=== PATIENT | female | born 1975 | race Caucasian/White ===

== ENCOUNTER 2025-06-06 12:29 | Inpatient (IN) | payer BC, SELFPAY ==
[2025-06-06 12:31] VITALS: BP 102/83; PULSE 92; RESP 18; TEMP 37.1; O2SAT 98; BMI 52.7
--- NOTE | 2025-06-06 13:08 | RAD_ITS ---
PROCEDURE: KNEE 4 OR MORE VIEWS 06/06/2025 REASON FOR EXAM: PAIN TECHNIQUE: Procedure Code: RADKN Modality: DX Procedure: KNEE 4 OR MORE VIEWS Right knee four views COMPARISON: None FINDINGS: There is moderate to severe tricompartment osteoarthritis with joint space narrowing and marginal osteophytes. No acute fracture or dislocation is identified. There is a small visible joint effusion. Mineralization is normal. There is no visible atherosclerosis. RAD/Knee 4 or More Views IMPRESSION: No acute fracture or dislocation is identified. Reading Location: [facility]
--- NOTE | 2025-06-06 13:14 | EX.ED.DYSGE1 ---
HPI History of Present Illness Chief Complaint: Lower Extremity Injury Narrative Narrative: Chief complaint and HPI: 49-year-old female presents for evaluation of right knee pain. Patient states that she is postop 6 weeks from a total left knee replacement that was performed in [place]. States that she was walking in the house with her walker when her right knee gave out on her. States that she heard crunching of her right knee while falling. She denies hitting her head. No LOC. Denies any headache, neck pain, back pain, abdominal pain, chest pain, shortness of breath. States all of her pain is located in her right knee. She was unable to ambulate after the incident. Review of systems: See HPI Medications: As listed on the chart Allergies: As listed on the chart PFSH: Per chart Vital signs: As listed on the chart. Reviewed. Physical exam: Gen: A&O x3, NAD Head: Normocephalic, atraumatic Eyes: No sclera icterus, conjunctiva clear ENT: Moist mucous membranes, atraumatic Neck: Trachea midline, full range of motion CV: Regular rate Resp: Nonlabored respiration GI: Abd soft, non-distended, non-tender Musc: Full ROM of all the extremities, left knee incision healing well without erythema or infection, right knee tender to palpation over the patella otherwise nontender, patient has large body habitus which makes swelling difficult to obtain although no swelling visualized, no external signs of trauma such as erythema or ecchymosis, DP/PT pulses +2 bilaterally, no knee instability, sensation intact Skin: Warm, dry Psych: Cooperative, appropriate mood and affect [facility] Medical History (Updated 06/06/25 @ 15:47 by Lasha West) Fibromyalgia Depression Lymphoma Cardiomyopathy HTN (hypertension) Home Medications ?Medication ?Instructions ?Recorded ?Last Taken ?Type acetaminophen 500 mg tablet 500 - 1,000 mg PO Q6H PRN PRN pain 06/06/25 Unknown History aspirin 81 mg tablet,delayed 81 mg PO BID 06/06/25 Unknown History release brexpiprazole 3 mg tablet (Rexulti) 3 mg PO DAILY 06/06/25 Unknown History bupropion HCl 300 mg 24 hr tablet, 300 mg PO DAILY 06/06/25 Unknown History extended release gffzbqazyt-orasylurccpzb-tvxcpgnc 1 - 2 tab PO Q4H PRN PRN headache 06/06/25 Unknown History 50 mg-325 mg-40 mg tablet empagliflozin 10 mg tablet 10 mg PO DAILY 06/06/25 Unknown History (Jardiance) furosemide 40 mg tablet 40 mg PO DAILY 06/06/25 Unknown History meloxicam 15 mg tablet 15 mg PO DAILY 06/06/25 Unknown History metoprolol succinate 100 mg 100 mg PO DAILY 06/06/25 Unknown History tablet,extended release 24 hr metoprolol succinate 50 mg 50 mg PO QHS 06/06/25 Unknown History tablet,extended release 24 hr omeprazole 40 mg capsule,delayed 40 mg PO DAILY 06/06/25 Unknown History release oxycodone 5 mg tablet 5 - 10 mg PO Q4H PRN PRN pain 06/06/25 Unknown History pregabalin 150 mg capsule 150 mg PO TID 06/06/25 Unknown History sacubitril 97 mg-valsartan 103 mg 1 tab PO BID 06/06/25 Unknown History tablet spironolactone 25 mg tablet 25 mg PO DAILY 06/06/25 Unknown History sumatriptan succinate 100 mg tablet 100 mg PO DAILY PRN migraine 06/06/25 Unknown History tirzepatide (weight loss) 15 15 mg subcut QWEEK 06/06/25 Unknown History mg/0.5 mL subcutaneous pen injector (Zepbound) trazodone 150 mg tablet 150 mg PO QHS 06/06/25 Unknown History venlafaxine 150 mg 150 mg PO DAILY 06/06/25 Unknown History capsule,extended release 24 hr venlafaxine 75 mg capsule,extended 75 mg PO DAILY 06/06/25 Unknown History release 24 hr Allergy/AdvReac Type Severity Reaction Status Date / Time No Known Allergies Allergy Verified 06/06/25 12:31 Surgical History (Updated 06/06/25 @ 15:47 by Lasha West) History of surgical removal of skin lesion H/O gastric sleeve History of carpal tunnel surgery History of hip surgery H/O right knee surgery Total knee replacement status Social History Smoking Status: Never smoker EXAM Physical Exam Const Vital Signs: 06/06/25 12:31 Temperature 98.7 F Temperature Source Oral Pulse Rate 92 Respiratory Rate 18 Blood Pressure 102/83 H Blood Pressure Mean 89 Pulse Ox 98 Oxygen Delivery Method Room Air MDM MDM MDM Narrative Medical decision making narrative: 49-year-old female presents for evaluation of right knee pain. Patient states that she is postop 6 weeks from a total left knee replacement that was performed in [place]. States that she was walking in the house with her walker when her right knee gave out on her. States that she heard crunching of her right knee while falling. She denies hitting her head. No LOC. See physical exam findings. Patient states she has been taking 10 mg oxycodone every 4-6 hours. States she was due for it about an hour ago. Will give oxycodone. X-ray of the right knee obtained. Differential diagnosis includes but is not limited to fracture, sprain, contusion. X-ray of the knee was personally viewed and interpreted by me, ED physician. No fracture or dislocation. Per radiology moderate to severe tricompartment osteoarthritis. On reevaluation, patient was unable to ambulate with a walker. Will give Toradol IM and reevaluate. Patient was unable to ambulate with Toradol. Patient will warrant admission for PT/OT evaluation and possibly skilled rehab. Hospitalist consulted and patient discussed. Would like basic labs before admitting. CBC and BMP ordered. CBC with mild leukocytosis 11.1. No anemia. Platelets unremarkable. BMP relatively unremarkable. patient updated about results. Patient admitted. Impression: 1. Right knee contusion 2. Inability to ambulate secondary to #1 3. Recent left knee replacement Lab Data Labs: Laboratory Results - last 24 hr 06/06/25 15:30 WBC 11.1 H RBC 4.82 Hgb 14.7 Hct 44.4 MCV 92.1 MCH 30.5 MCHC 33.1 RDW Std Deviation 45.0 H RDW Coeff of Porfirio 13.3 Plt Count 223 MPV 10.4 Immature Gran % (Auto) 0.700 Neut % (Auto) 85.8 H Lymph % (Auto) 9.8 L [place] % (Auto) 3.6 Eos % (Auto) 0.0 Baso % (Auto) 0.1 Absolute Neuts (auto) 9.5 H Absolute Lymphs (auto) 1.09 Nucleated RBC % 0 Sodium 137 Potassium 5.0 Chloride 99 Carbon Dioxide 25.9 Anion Gap 12 BUN 32 H Creatinine 1.19 Estim Creat Clear Calc 106.27 Est GFR (MDRD) Non-Af 56 L BUN/Creatinine Ratio 27.1 H Glucose 138 H Calcium 9.2 Radiography Diagnostic Testing: Clinical Impression(s) from Imaging Studies Knee X-Ray 06/06/25 13:08 IMPRESSION: No acute fracture or dislocation is identified. Reading Location: [facility] Discharge Plan Triage Chief Complaint: Lower Extremity Injury ED Provider: Carlitos Gonzalez Dx/Rx/DC Orders Prescriptions: No Action furosemide 40 mg tablet 40 mg PO DAILY metoprolol succinate 50 mg tablet extended release 24 hr 50 mg PO QHS meloxicam 15 mg tablet 15 mg PO DAILY metoprolol succinate 100 mg tablet extended release 24 hr 100 mg PO DAILY aspirin 81 mg tablet,delayed release (DR/EC) 81 mg PO BID acetaminophen 500 mg tablet 500 - 1,000 mg PO Q6H PRN PRN (Reason: pain) wpbpuhyocb-msycvcfgaaulk-uprp 50-325-40 mg tablet 1 - 2 tab PO Q4H PRN PRN (Reason: headache) bupropion HCl 300 mg tablet extended release 24 hr 300 mg PO DAILY Jardiance 10 mg tablet 10 mg PO DAILY Rexulti 3 mg tablet 3 mg PO DAILY omeprazole 40 mg capsule,delayed release(DR/EC) 40 mg PO DAILY venlafaxine 75 mg capsule,extended release 24hr 75 mg PO DAILY sumatriptan succinate 100 mg tablet 100 mg PO DAILY PRN (Reason: migraine) venlafaxine 150 mg capsule,extended release 24hr 150 mg PO DAILY spironolactone 25 mg tablet 25 mg PO DAILY trazodone 150 mg tablet 150 mg PO QHS oxycodone 5 mg tablet 5 - 10 mg PO Q4H PRN PRN (Reason: pain) pregabalin 150 mg capsule 150 mg PO TID sacubitril-valsartan 97-103 mg tablet 1 tab PO BID Zepbound 15 mg/0.5 mL pen injector 15 mg subcut QWEEK Primary Care Provider: Sophia Noel Referrals: Sophia Noel MD [Primary Care Provider, Internal Medicine] Print Language: Gabonese
[2025-06-06] MEDS: Ketorolac 30 MG/ML Syringe IM (14:23)
--- NOTE | 2025-06-06 15:15 | PCM.HP.STD ---
HPI - General General Date of Admission: 06/06/25 Date of Service: 06/06/25 Chief Complaint: Fall with right knee pain HPI Narrative DIANNE BROWN, is a 49 F who presented to [facility] ED on 06/06/2025 with right knee pain after a fall. Patient lives in [place] and was visiting her mother in [place] over the past few days, has no records in our system. [facility] records reviewed. Medical history significant for class III obesity, ALICIA, lymphoma s/p chemotherapy in 2020 now in remission, chronic HFrEF due to chemotherapy with recovery (last EF 47% in 08/2024) and mood disorder. Patient had a recent left total knee replacement done at [facility] on 04/27. She saw her PCP for a preoperative appointment on 04/10 and it was noted that her heart failure was stable and she was otherwise medically optimized for the procedure. Since her procedure, she continues to use a 4 point walker for ambulation and does have some ongoing left knee pain but otherwise has done fairly well postoperatively. Today she was about to get into her car to leave to go back down to [place] when she fell onto her right side. She noted significant right knee pain after the fall and came to the ED for further evaluation. Right knee x-ray in the ED showed moderate to severe tricompartment osteoarthritis with joint space narrowing and marginal osteophytes, small visible joint effusion noted, otherwise no fractures or dislocation noted. She otherwise was hemodynamically stable and labs were benign. She was given medication for pain control and then ED physician attempted to ambulate her but she had significant difficulty with ambulation even with the 4 point walker. Thus, hospitalist was contacted for admission. I saw the patient at bedside in the ED, mother was present. Patient was sitting back comfortably in bed, conversing normally, in no acute distress. She reported mild right knee pain currently at rest that worsens with weightbearing and ambulation. Notes that the pain medication was mild to moderately helpful for her. She otherwise denies any acute concerns currently. Will be admitted for further management. [facility] Medical History (Updated 06/06/25 @ 17:[address] Cuate Azevedo, DO) Fibromyalgia Depression Lymphoma Cardiomyopathy HTN (hypertension) Home Medications ?Medication ?Instructions ?Recorded ?Last Taken ?Type acetaminophen 500 mg tablet 500 - 1,000 mg PO Q6H PRN PRN pain 06/06/25 Unknown History aspirin 81 mg tablet,delayed 81 mg PO BID 06/06/25 Unknown History release brexpiprazole 3 mg tablet (Rexulti) 3 mg PO DAILY 06/06/25 Unknown History bupropion HCl 300 mg 24 hr tablet, 300 mg PO DAILY 06/06/25 Unknown History extended release ddkalqjemq-evmkczemvyclg-znwmoaiq 1 - 2 tab PO Q4H PRN PRN headache 06/06/25 Unknown History 50 mg-325 mg-40 mg tablet empagliflozin 10 mg tablet 10 mg PO DAILY 06/06/25 Unknown History (Jardiance) furosemide 40 mg tablet 40 mg PO DAILY 06/06/25 Unknown History meloxicam 15 mg tablet 15 mg PO DAILY 06/06/25 Unknown History metoprolol succinate 100 mg 100 mg PO DAILY 06/06/25 Unknown History tablet,extended release 24 hr metoprolol succinate 50 mg 50 mg PO QHS 06/06/25 Unknown History tablet,extended release 24 hr omeprazole 40 mg capsule,delayed 40 mg PO DAILY 06/06/25 Unknown History release oxycodone 5 mg tablet 5 - 10 mg PO Q4H PRN PRN pain 06/06/25 Unknown History pregabalin 150 mg capsule 150 mg PO TID 06/06/25 Unknown History sacubitril 97 mg-valsartan 103 mg 1 tab PO BID 06/06/25 Unknown History tablet spironolactone 25 mg tablet 25 mg PO DAILY 06/06/25 Unknown History sumatriptan succinate 100 mg tablet 100 mg PO DAILY PRN migraine 06/06/25 Unknown History tirzepatide (weight loss) 15 15 mg subcut QWEEK 06/06/25 Unknown History mg/0.5 mL subcutaneous pen injector (Zepbound) trazodone 150 mg tablet 150 mg PO QHS 06/06/25 Unknown History venlafaxine 150 mg 150 mg PO DAILY 06/06/25 Unknown History capsule,extended release 24 hr venlafaxine 75 mg capsule,extended 75 mg PO DAILY 06/06/25 Unknown History release 24 hr Allergy/AdvReac Type Severity Reaction Status Date / Time No Known Allergies Allergy Verified 06/06/25 12:31 Surgical History (Updated 06/06/25 @ 15:47 by Lasha West) History of surgical removal of skin lesion H/O gastric sleeve History of carpal tunnel surgery History of hip surgery H/O right knee surgery Total knee replacement status Social History Smoking Status: Never smoker ROS Constitutional Constitutional: Denies chills, fatigue or fever(s) Cardiovascular Cardiovascular: Denies chest pain Respiratory/Chest Respiratory/Chest: Denies shortness of breath at rest Gastrointestinal Gastrointestinal: Denies abdominal pain Musculoskeletal Musculoskeletal: Reports arthralgias, joint pain and joint stiffness; Denies back pain or myalgias Neurologic Neurologic: Denies dizziness, focal weakness, headache(s), numbness or tingling Vital Signs Vital Signs Vital Signs: 06/06/25 12:31 Temperature 98.7 F Temperature Source Oral Pulse Rate 92 Respiratory Rate 18 Blood Pressure 102/83 H Blood Pressure Mean 89 Pulse Ox 98 Oxygen Delivery Method Room Air Weight Weight: 181.2 kg Body Mass Index (BMI) 52.7 Physical Exam Const alert, oriented x3 and no apparent distress Constitutional Narrative: Middle-age female, class III obesity, sitting back comfortably in bed, conversing normally, in no acute distress. General Appearance: cooperative and comfortable HEENT normocephalic, head/scalp atraumatic, hearing grossly normal bilaterally, nasal mucous membranes and turbinates normal and moist oral mucous membranes Eyes PERRL, EOMs intact bilaterally and conjunctivae normal Neck full ROM Chest inspection of chest normal Resp normal respiratory effort, normal air movement, no use of accessory muscles and clear to auscultation bilaterally Cardio regular rate, regular rhythm, no murmurs and peripheral pulses 2+ throughout GI normal to inspection, nondistended, normoactive bowel sounds, soft to palpation, non-tender and non-distended Back/Spine normal ROM Extremity Extremity Narrative: Right knee with mild tenderness to palpation; however no erythema or swelling noted. Left knee with surgical stitches in place and appear to be healing well. Skin no rashes or lesions noted Neuro moves all extremities and no focal motor deficits Speech: speech normal Psych mental status grossly normal Results Lab / Micro Data 06/06/25 15:30 06/06/25 15:30 Imaging Radiology Impression Knee X-Ray 06/06/25 13:08 IMPRESSION: No acute fracture or dislocation is identified. Reading [facility] Assessment & Plan Assessment/Plan (1) Right knee pain: (2) Inability to ambulate due to right knee: PLAN: Plan Patient is a 49-year-old female who presented to [facility] ED on 06/06/2025 with right knee pain and inability to ambulate after a mechanical fall. 1. Right knee pain with inability to ambulate after mechanical fall ? Admit under observation status to [facility]. PT/OT/case management consulted. Patient has been using 4 point walker for ambulation since left knee replacement about 6 weeks ago as below. Had mechanical fall onto right side on morning of admission with resultant right knee pain. Right knee x-ray showed chronic moderate to severe degenerative changes with small joint effusion, no fractures or dislocation noted. Seems most consistent with knee contusion. Will continue pain control with oxycodone 10 mg every 6 hours as needed here. Continue home pregabalin and Mobic as well. Patient reports having steroid injections into the knee in the past without much improvement. She is planning to have the right knee replaced in the near future as well, has not been scheduled yet. Patient lives in [place] and was up in [place] visiting her mother; she would prefer home with outpatient physical therapy if possible on discharge. Appreciate therapy recommendations. 2. Recent left total knee replacement ? Had left total knee arthroplasty done with orthopedic surgery at [facility] in [place] on 04/27. Has used 4 point walker since then and has had ongoing pain managed on oxycodone at home, but she otherwise notes she has done fairly well postoperatively. Unfortunately was scheduled to see her surgeon there tomorrow. Continue oxycodone for pain control as above. Will continue baby aspirin twice daily for DVT prophylaxis while here as well. Chronic medical conditions: ? Class III obesity with ALICIA: BMI 52 on admit. Complicates hospital course and care. Continue PAP therapy at night. Holding home tirzepatide while inpatient. ? Chronic HFrEF: Follows with cardiology in [place]. Initially diagnosed in 2022 and suspected secondary to chemotherapy for lymphoma as below. EF was 35 to 40% at diagnosis. Most recent EF 47% in 08/2024. Euvolemic on admit, no concern for heart failure exacerbation. Will continue home empagliflozin, Lasix, Toprol, spironolactone and Entresto. ? History of lymphoma s/p chemotherapy: Diagnosed in 2020 and underwent 6 rounds of chemotherapy then. Is now in remission. No inpatient needs, continue outpatient follow-up. ? Mood disorder: Stable. Continue home brexpiprazole, bupropion, venlafaxine and trazodone at night. ? GERD: Continue home PPI. DVT prophylaxis: Baby aspirin twice daily CODE STATUS: Full code, verified Effective disposition: Home with home health care versus SNF, 1 to 2 days Total clinical time spent by myself addressing the patient's medical issues, reviewing all the data, and collaborating with patient's care team: 83 minutes. Charges/Coding Visit Charges Inpatient E&M: 82748 Init Hosp L3
[2025-06-06 15:48] LABS: Hematocrit 44.4 % (37-47); Hemoglobin 14.7 g/dL (12.0-15.0); Immature Granulocytes Count 0.080 X10^3/uL (0.0-0.0); Mean Corp Hgb Conc 33.1 g/dL (32-36); Mean Corpuscular Volume 92.1 fL (81-99); Mean Platelet Vol. 10.4 fl (6.2-12.0); NRBC Flagged by Analyzer 0 % (0-5); Platelet Count 223 K/mm3 (150-450); RBC Distribution Width CV 13.3 % (11.6-14.6); RBC Distribution Width SD 45.0 fl (35.1-43.9); Red Blood Count 4.82 M/mm3 (4.2-5.4); White Blood Count 11.1 K/mm3 (4.4-11.0)
[2025-06-06 16:18] LABS: Anion Gap 12 (5-15); BUN 32 mg/dL (4-19); BUN/Creat Ratio 27.1 RATIO (10-20); Calcium,Total 9.2 mg/dL (7.6-11.0); Carbon Dioxide 25.9 mmol/L (21.0-32.0); Chloride 99 mmol/L (98-108); Estimated Creatinine Clearance 106.27 ml/min (50-250); Glucose 138 mg/dL (70-99); Potassium 5.0 mmol/L (3.3-5.1)
--- NOTE | 2025-06-06 16:24 | CASEMGMT ---
Care Management Face to Face with patient for initial transition planning/care coordination assessment in the ED.? This instructional writer introduced self and role at [facility]. Patient alert and oriented. Patient willing to participate in assessment and is able to answer all questions appropriately.? Care providers, pharmacy, and demographics verified. Admitting Diagnosis: ?Lower extremity injury Other diagnosis history: ?Fibromyalgia, lymphoma, cardiomyopathy, HTN PCP: ?Sadie Specialists: ?David with [facility] in [place] Preferred Pharmacy: [facility] Insurance: ?[place] Prescription Benefit: ?yes Living Will/HPOA: ?Patient stated she had both completed LNOK: ?mom Living Arrangements: ?patient lives in a condo in [place], mom has been staying with her to assist after knee surgery.?? Transportation: Mom has been driving patient DME: ?walker, rails on toilet and shower, cane, blood pressure cuff, pulse ox HHC: ?Has been completing outpatient therapy with [facility] in [place] SNF/Rehab: ?none Community Resources: ?none Behavioral Health History: ?Depression Patient goals: Patients discharge plans uncertain at this time. Patient unable to ambulate due to injury to non surgical knee, states she will need a SNF is she is unable to walk at [place].? Would prefer a SNF in [place] if rehab stay is needed. Disposition Plan: admission to acute; RN CM/SW to follow for discharge planning needs that may arise. Priscila Mcneil, [employer] PREP TEACHER, NETWORK CONSULTANT
[2025-06-06 17:46] VITALS: BP 106/70; PULSE 83; RESP 17; TEMP 36; O2SAT 94
[2025-06-06 17:50] VITALS: BP 106/70
[2025-06-06 18:17] VITALS: BMI 61.0
[2025-06-06 20:35] VITALS: BP 113/77; PULSE 81; RESP 16; TEMP 36.5; O2SAT 97
[2025-06-06] MEDS: SACUBITRIL/VALSARTAN 97-103 MG TABLET 1 EACH PO (22:43)
[2025-06-06 22:49] VITALS: BP 105/77; PULSE 77
[2025-06-06] MEDS: Metoprolol(XL)Succ 50 MG Tablet PO (22:49)
[2025-06-07] VITALS (11 sets, daily range): BP systolic 80–114; BP diastolic 49–73; PULSE 77–92; RESP 16–17; TEMP 35.9–36.9; O2SAT 93–97
[2025-06-07] MEDS: Metoprolol(XL)Succ 100 MG Tablet PO (09:28)
[2025-06-07] MEDS: buPROPion (XL) 300 MG TABLET.XL PO (09:31)
[2025-06-07] MEDS: SACUBITRIL/VALSARTAN 97-103 MG TABLET 1 EACH PO (09:31)
[2025-06-07] MEDS: BREXPIPRAZOLE 3 MG PO (09:33)
--- NOTE | 2025-06-07 09:57 | CASEMGMT ---
Discharge Planning A list of?SNF providers including quality and resource use data and consistent with the patient's preferred geographic region, medical needs, and insurance network was created in [facility] Guide.? This list was provided to the RN THOMAS. Ngoc Ann, Discharge Planning Asst.
--- NOTE | 2025-06-07 10:30 | CASEMGMT ---
Addendum entered by Erica Brunner 06/07/25 12:42: Pt has chosen the following for SNF choices:[facility], [facility], [facility] and [facility] respectively. Requested dc assistant front desk manager send referral. Original Note: Discussed pt therapy eval with therapy, pt is in need of a SNF [place]. NELY GUZMAN into pt room, pt sitting up in chair with mother at bedside. Pt agreeable to discussion with mother present. Provided pt with a list of SNF's created by dc assistant front desk manager. Pt states she has a couple in mind. She is aware that if they are not on the list, NELY GUZMAN can reprint as there were many SNF's in her area. Discussed with pt transport to SNF and that she may need to pay up front for some of the travel. Pt states she will need transport as she does not feel that she can get in a regular car for a family member to transport her. Pt to review list and NELY GUZMAN to check back on choices. Pt denies further needs at this time.
--- NOTE | 2025-06-07 12:59 | CASEMGMT ---
Addendum entered by Ngoc Ann 06/08/25 14:32: [facility] has declined. RN CM updated. Ngoc Ann DC Planning Asst. Original Note: Discharge Planning Referral sent to Judy. Ngoc Ann DC Planning Asst.
[2025-06-07] MEDS: 0.9% Saline Lock 10 ML Syringe IV (14:23)
[2025-06-07] MEDS: 0.9% Normal Saline (1000mL) 1,000 ML 50 ML IV (14:23)
--- NOTE | 2025-06-07 16:23 | PN.HOSP_ITS ---
Reason for Visit Chief Complaint: Fall with right knee pain Subjective Subjective Reports still feeling a lot of pain and has difficulty getting around. Does note earlier she felt a little lightheaded because her blood pressure was low but not feeling that way at time of exam. Otherwise no new or acute complaints Objective Data Objective Data Vital Signs: Vital Signs Temp Pulse Resp BP Pulse Ox O2 Del Method 97.5 F L 92 16 87/49 L 95 Room Air 06/07/25 15:53 06/07/25 15:53 06/07/25 15:53 06/07/25 15:53 06/07/25 15:53 06/07/25 15:53 Oxygen Delivery Method Room Air Weight: 209.7 kg Body Mass Index (BMI) 61.0 Intake & Output: Intake and Output for Last 24 Hours 06/05/25 06/06/25 06/07/25 23:59 23:59 23:59 Intake Total 350 / 350 Output Total 200 / 200 Balance 150 / 150 Lab / Micro Data 06/06/25 15:30 06/06/25 15:30 Physical Exam Narrative General: Alert, oriented, no apparent distress HEENT: Atraumatic, normocephalic Eyes: Anicteric, normal conjunctiva, extraocular movements grossly intact Neck: Supple Respiratory: Clear to auscultation bilaterally, normal respiratory effort Cardiovascular: Regular rate and rhythm GI: Soft, nontender, nondistended Extremities: Nonpitting edema Musculoskeletal: Has pain when moving extremities Neuro: No overt focal neurological deficits Skin: Little bit of erythema under icepack but otherwise no overt rashes appreciated Psych: Cooperative Assessment & Plan Assessment/Plan (1) Inability to ambulate due to right knee: PLAN: Plan # Right knee pain after fall - Right knee x-ray showed moderate to severe tricompartment osteoarthritis with joint space narrowing and marginal osteophytes, small visible joint effusion noted otherwise no fractures or dislocations - Given recent left knee replacement in addition to right knee pain patient had significant difficulty ambulating so was admitted for further management - Schedule Tylenol - Pain control/report of care - PT/OT - Plan is for placement in the [facility] where patient is from and where her orthopedic surgeon is # Recent left knee replacement - Continue aspirin 81 mg twice daily # History of cardiomyopathy - No echo available in our system - Patient is on Jardiance, spironolactone, Entresto, metoprolol, furosemide - Has had problems with soft blood pressure especially in addition to her pain medications - Slightly down titrating Entresto metoprolol, holding parameters for spironolactone and Entresto added as well - Will add daily weights and I's and O's #Depression/anxiety -Continue home medications #GERD -Continue PPI # History of fibromyalgia - Continue home medications - Supportive care #Morbid obesity -BMI documented as 61 kg/m? at time of admission -Complicates treatment, prognosis, outcomes -Recommend weight loss and lifestyle changes #DVT ppx: Patient on aspirin 81 mg twice daily for DVT prophylaxis postoperatively, this has been continued Stella Don MD Charges/Coding Visit Charges Inpatient E&M: 50169 Subs Hosp L2
[2025-06-08] VITALS (9 sets, daily range): BP systolic 92–154; BP diastolic 56–137; PULSE 74–114; RESP 16–18; TEMP 36.1–37; O2SAT 95–98; BMI 61.2
[2025-06-08] MEDS: 0.9% Normal Saline (1000mL) 1,000 ML 100 ML IV (03:47)
[2025-06-08 08:12] LABS: Hematocrit 42.2 % (37-47); Hemoglobin 13.5 g/dL (12.0-15.0); Immature Granulocytes Count 0.190 X10^3/uL (0.0-0.0); Mean Corp Hgb Conc 32.0 g/dL (32-36); Mean Corpuscular Volume 95.0 fL (81-99); Mean Platelet Vol. 10.6 fl (6.2-12.0); NRBC Flagged by Analyzer 0 % (0-5); Platelet Count 203 K/mm3 (150-450); RBC Distribution Width CV 13.4 % (11.6-14.6); RBC Distribution Width SD 47.0 fl (35.1-43.9); Red Blood Count 4.44 M/mm3 (4.2-5.4); White Blood Count 18.8 K/mm3 (4.4-11.0)
[2025-06-08 08:41] LABS: Anion Gap 13 (5-15); BUN 59 mg/dL (4-19); BUN/Creat Ratio 20.2 RATIO (10-20); Calcium,Total 8.9 mg/dL (7.6-11.0); Carbon Dioxide 22.8 mmol/L (21.0-32.0); Chloride 99 mmol/L (98-108); Estimated Creatinine Clearance 47.18 ml/min (50-250); Glucose 143 mg/dL (70-99); Potassium 4.7 mmol/L (3.3-5.1)
--- NOTE | 2025-06-08 09:20 | US_ITS ---
PROCEDURE: KIDNEY AND BLADDER N/A REASON FOR EXAM: KIDNEY FXN MORE THAN DOUBLED OVERNIGHT TECHNIQUE: Procedure Code: USKI Modality: US Procedure: KIDNEY AND BLADDER COMPARISON: None FINDINGS: Kidneys: Right kidney is 12.0 x 5.3 x 4.4 cm, while the left is 12.3 x 7.2 x 6.9 cm. [place]: Absent Cysts or Masses: Absent Bladder: Prevoid bladder volume 717 cc. Ureteral jets are not seen. No wall thickening. US/Kidney and Bladder IMPRESSION: No collecting system dilation. Reading Location: [id number]
--- NOTE | 2025-06-08 09:25 | NURSING ---
primary RN updated on conversation regarding meds, ivf, urine needed- priority w/ Dr. Don
[2025-06-08] MEDS: BREXPIPRAZOLE 3 MG PO (09:52)
[2025-06-08] MEDS: Metoprolol(XL)Succ 50 MG Tablet PO (09:52)
[2025-06-08] MEDS: buPROPion (XL) 300 MG TABLET.XL PO (09:53)
[2025-06-08 10:00] LABS: Procalcitonin 0.19 ng/mL (<=0.10)
--- NOTE | 2025-06-08 10:40 | PCM.PN.HOSP ---
Reason for Visit Chief Complaint: Fall with right knee pain Subjective Subjective Patient evaluated at bedside, reports she felt a little bit dizzy yesterday but not today, said her most recent EF was 40% and that she is following routinely with cardiology every 6 months. She denies any chest pain or shortness of breath, still has pain in her knee, denies any urinary complaints, no significant abdominal pain, still waiting to have a bowel movement Objective Data Objective Data Vital Signs: Vital Signs Temp Pulse Resp BP Pulse Ox O2 Del Method 97.3 F L 114 H 18 132/110 H 98 Room Air 06/08/25 09:40 06/08/25 09:52 06/08/25 09:40 06/08/25 09:52 06/08/25 09:40 06/08/25 09:40 Oxygen Delivery Method Room Air Weight: 209.7 kg Body Mass Index (BMI) 61.2 Intake & Output: Intake and Output for Last 24 Hours 06/06/25 06/07/25 06/08/25 23:59 23:59 23:59 Intake Total 831.67 / 1231.67 1596.67 / 1596.67 Output Total 200 / 300 225 / 225 Balance 631.67 / 931.67 1371.67 / 1371.67 Lab / Micro Data 06/08/25 07:55 06/08/25 07:55 Labs: Laboratory Results - last 24 hr 06/08/25 07:55: WBC 18.8 H, RBC 4.44, Hgb 13.5, Hct 42.2, MCV 95.0, MCH 30.4, MCHC 32.0, RDW Std Deviation 47.0 H, RDW Coeff of Porfirio 13.4, Plt Count 203, MPV 10.6, Immature Gran % (Auto) 1.000 H, Neut % (Auto) 85.7 H, Lymph % (Auto) 5.6 L, [place] % (Auto) 7.1, Eos % (Auto) 0.4, Baso % (Auto) 0.2, Absolute Neuts (auto) 16.1 H, Absolute Lymphs (auto) 1.06, Nucleated RBC % 0, Sodium 135, Potassium 4.7, Chloride 99, Carbon Dioxide 22.8, Anion Gap 13, BUN 59 H, Creatinine 2.94 H, Estim Creat Clear Calc 47.18 L, Est GFR (MDRD) Non-Af 19 L, BUN/Creatinine Ratio 20.2 H, Glucose 143 H, Calcium 8.9, Procalcitonin 0.19 H Radiography Diagnostic Testing: Radiology Impression Renal Ultrasound 06/08/25 09:20 IMPRESSION: No collecting system dilation. Reading Location: [facility] Physical Exam Narrative General: Alert, oriented, no apparent distress HEENT: Atraumatic, normocephalic Eyes: Anicteric, normal conjunctiva, extraocular movements grossly intact Neck: Supple Respiratory: Clear to auscultation bilaterally, normal respiratory effort Cardiovascular: Regular rate and rhythm GI: Soft, nontender, nondistended Extremities: Nonpitting Musculoskeletal: Has pain when moving extremities Neuro: No overt focal neurological deficits Skin: No overt rashes appreciated Psych: Cooperative Assessment & Plan Assessment/Plan (1) Inability to ambulate due to right knee: PLAN: Plan #MARIELLA -06/08: On admission patient with BUN of 32 and creatinine 1.19, patient awaiting placement with no acute complaints aside from the knee pain so labs were not repeated 06/07 however decided to repeat routine labs 06/08 which noted a creatinine of 2.94. Unclear if this could be due to patient's low blood pressure in addition to her home medications and the meloxicam she was on but will hold meloxicam, Entresto, Aldactone, Lasix, Jardiance and down titrate metoprolol, obtain urine lytes and a kidney and bladder ultrasound and repeat BMP this afternoon. Monitoring I's and O's as able and daily weights ordered. Blood pressure is much better today. Will need to carefully monitor volume status given patient's cardiomyopathy though she reports EF is much better than previous most recently 40%. # Leukocytosis -06/08: Unclear etiology, patient with no focal complaints, denies any diarrhea or burning on urination, no shortness of breath. Pro-Dionicio 0.19, recommend interpretation is that a Pro-Dionicio less than 0.29 antibiotic therapy is discouraged as bacterial infection is unlikely. Patient afebrile, will check UA and blood culture but will hold off on empiric antibiotics pending further workup and vitals # Right knee pain after fall - Right knee x-ray showed moderate to severe tricompartment osteoarthritis with joint space narrowing and marginal osteophytes, small visible joint effusion noted otherwise no fractures or dislocations - Given recent left knee replacement in addition to right knee pain patient had significant difficulty ambulating so was admitted for further management - Schedule Tylenol - Pain control/report of care - PT/OT - Plan is for placement in the [facility] where patient is from and where her orthopedic surgeon is -06/08: Referrals have been sent for SNF # Recent left knee replacement - Continue aspirin 81 mg twice daily -06/08: Continue PT/OT # History of cardiomyopathy - No echo available in our system - Patient is on Jardiance, spironolactone, Entresto, metoprolol, furosemide - Has had problems with soft blood pressure especially in addition to her pain medications - Slightly down titrating Entresto metoprolol, holding parameters for spironolactone and Entresto added as well - Will add daily weights and I's and O's -06/08: Have held multiple home medications and down titrated metoprolol, BP is better today after IV fluids and holding medications, per patient most recent EF was 40%. Continue to monitor daily weights and I's and O's Chronic medical problems and/or problems not being actively addressed during today's encounter: #Depression/anxiety -Continue home medications #GERD -Continue PPI # History of fibromyalgia - Continue home medications - Supportive care #Morbid obesity -BMI documented as 61 kg/m? at time of admission -Complicates treatment, prognosis, outcomes -Recommend weight loss and lifestyle changes #DVT ppx: Patient on aspirin 81 mg twice daily for DVT prophylaxis postoperatively, this has been continued Stella Don MD Charges/Coding Visit Charges Inpatient E&M: 61191 Subs Hosp L2
[2025-06-08 11:16] LABS: Color, Urine Yellow (Yellow); Glucose, Dipstick 100 mg/dl (Normal); Ketone-Dipstick 5 mg/dl (Negative); Leukocyte Esterase-Dipstick 25 /ul (Negative); Nitrite-Dipstick Negative (Negative); Occult Blood-Urine Negative /ul (Negative); Protein-Dipstick 30 mg/dl (Negative); Red Blood Cells-Urine 0 SEEN /hpf (0-5); Specific Gravity, Urine 1.020 (1.002-1.030); Urine Bilirubin Dipstick Negative (Negative)
[2025-06-08 11:22] LABS: Mucous, Urine RARE /hpf (<or=2+); Squamous Epithelial Cells - UA 0-5 SEEN /hpf (5-10)
--- NOTE | 2025-06-08 11:32 | NURSING ---
bladder scanned pt after straight cath for urine sample; straight cathed for 1050; the amount was too small to measure on the bladder scanner; will continue to monitor
[2025-06-08 12:02] LABS: Urea Nitrogen, Urine 724 mg/dL (NO RANGE EST.)
[2025-06-08 12:03] LABS: Creatinine, Urine (random) 146.00 mg/dL (28.00-217.00)
--- NOTE | 2025-06-08 14:32 | CASEMGMT ---
Addendum entered by Ngoc Ann 06/11/25 09:09: Follow up calls were made to all 2 snfs. VMs left. RN CM updated. Ngoc Ann DC Planning Asst. Original Note: Discharge Planning Referral sent to [facility], [facility], and [facility]. Ngoc Ann DC Planning Asst.
[2025-06-08 14:48] LABS: Differential Indicated SCAN CRITERIA MET; Hematocrit 40.1 % (37-47); Hemoglobin 12.7 g/dL (12.0-15.0); Immature Granulocytes Count 0.210 X10^3/uL (0.0-0.0); Mean Corp Hgb Conc 31.7 g/dL (32-36); Mean Corpuscular Volume 95.9 fL (81-99); Mean Platelet Vol. 11.0 fl (6.2-12.0); NRBC Flagged by Analyzer 0 % (0-5); POSITIVE DIFFERENTIAL YES; Platelet Count 186 K/mm3 (150-450); RBC Distribution Width CV 13.5 % (11.6-14.6); RBC Distribution Width SD 47.8 fl (35.1-43.9); Red Blood Count 4.18 M/mm3 (4.2-5.4); White Blood Count 22.5 K/mm3 (4.4-11.0)
--- NOTE | 2025-06-08 15:18 | CASEMGMT ---
RN CM into pt room, pt aware that her first choice has declined and that referrals were sent to the remaining facility choices.
[2025-06-08 15:37] LABS: Anion Gap 16 (5-15); BUN 63 mg/dL (4-19); BUN/Creat Ratio 18.0 RATIO (10-20); Calcium,Total 8.6 mg/dL (7.6-11.0); Carbon Dioxide 20.3 mmol/L (21.0-32.0); Chloride 96 mmol/L (98-108); Estimated Creatinine Clearance 39.63 ml/min (50-250); Glucose 116 mg/dL (70-99); Potassium 4.4 mmol/L (3.3-5.1)
--- NOTE | 2025-06-08 16:24 | PCM.HOSP.N ---
Hospitalist Note Patient's home medications, Entresto, spironolactone, Lasix, Jardiance, and meloxicam have been held. UA does not appear overtly infectious, has bacteria but no white cells and Pro-Dionicio 0.19 which is in range that usually antibiotics would be discouraged however given further elevation of white count and worsening renal function will place on antibiotics while waiting urine culture and blood cultures. Given worsening renal function, discussed with Dr. Carpenter with nephrology who will see her in consult. Suspected that due to patient's low blood pressure overnight in addition to the nature of her medications (meloxicam etc) may have led to the worsening kidney function given lack of other identifiable etiology at this time. Lactic 3.3, normal CPK. Patient has been started on IV fluids after discussing with nephrology, continue to monitor I's and O's and volume status to avoid overload, repeat labs in the a.m. most recently heart rate 101 with a blood pressure 154/137, afebrile, respiratory rate 17 and pulse ox 97% on room air, patient vitally stable. Suspect lab work is like behind improvement in blood pressure so would anticipate with stable blood pressure and IV fluids as will begin to improve, further workup and management as case evolves. Appreciate nephrology evaluation and recommendations
--- NOTE | 2025-06-08 16:25 | RAD_ITS ---
PROCEDURE: FEMUR MIN 2 VIEWS 06/08/2025 REASON FOR EXAM: RIGHT LEG PAIN, DIFFICULTY BEARING WEIGHT TECHNIQUE: Procedure Code: RADFEM Modality: DX Procedure: FEMUR MIN 2 VIEWS Laterality: Right COMPARISON: None. FINDINGS: BONES: No acute fracture or focal osseous lesion. JOINTS: No dislocation. Mild hip joint space narrowing. Arthritic changes of the knee. SOFT TISSUES: The soft tissues are unremarkable. RAD/Femur Min 2 Views IMPRESSION: NO ACUTE FRACTURE OR DISLOCATION. Reading Location: [id number]
--- NOTE | 2025-06-08 16:25 | RAD_ITS ---
PROCEDURE: TIBIA FIBULA 2 VIEWS 06/08/2025 REASON FOR EXAM: RIGHT LEG PAIN, DIFFICULTY BEARING WEIGHT TECHNIQUE: Procedure Code: RADTF Modality: DX Procedure: TIBIA FIBULA 2 VIEWS Laterality: Right COMPARISON: None. FINDINGS: BONES: No acute fracture or focal osseous lesion. Small plantar and dorsal calcaneal spurs. JOINTS: No dislocation. The ankle mortise is preserved. Arthritic changes of the knee. SOFT TISSUES: The soft tissues are unremarkable. RAD/Tibia & Fibula 2 Views IMPRESSION: NO ACUTE FRACTURE OR DISLOCATION. Reading Location: [id number]
[2025-06-08 16:27] LABS: AST(SGOT) 23 U/L (<=31); Alanine Aminotransfer ALT/SGPT 27 U/L (<=34); Albumin, Serum 3.1 g/dL (3.5-5.0); Alkaline Phosphatase 119 U/L (35-104); Bilirubin, Direct 0.85 mg/dL (0.00-0.30); CPK Total, Creatine Kinase 144 U/L (24-195); Globulin 3.1 g/dL (2.2-4.2)
[2025-06-08] MEDS: 0.9% Normal Saline (1000mL) 1,000 ML 75 ML IV (16:49)
[2025-06-08] MEDS: 0.9% Saline Lock 10 ML Syringe IV (16:50)
[2025-06-08] MEDS: Piperacil/Tazobactam 4.5 GM in 0.9% Normal Saline (100mL MB+) 100 ML IV (17:09)
--- NOTE | 2025-06-08 18:34 | PCM.CONS.R ---
Assessment & Plan Assessment/Plan (1) MARIELLA (acute kidney injury): PLAN: Cr was 1.1 on admit. increased to 3.5. CK is ok. renal US ok. UA not impressive. really nothing happened over last 2 days except low BP. CHF meds on hold. WBC is increasing, lactate 3.3. ? sepsis. ? source. continue IV fluids for now. HPI Consult Data Date of Consult: 06/08/25 HPI Narrative Reason for Consultation: MARIELLA HPI Narrative: DIANNE BROWN, is a 49 F who presents to the hospital with weakness, fall. renal consulted for MARIELLA. she was admitted with a creatinine of 1.1. Cr worsened over last 2 days. BP has been low. history of cardiomyopathy. on several CHF meds. no contrast. recent left knee surgery. WBC increasing. says she was not making urine. does not feel like she is retaining. [facility] Medical History (Updated 06/08/25 @ 18:[address] Ronald Carpenter MD) Fibromyalgia Depression Lymphoma Cardiomyopathy HTN (hypertension) Home Medications ?Medication ?Instructions ?Recorded ?Last Taken ?Type acetaminophen 500 mg tablet 500 - 1,000 mg PO Q6H PRN PRN pain 06/06/25 Unknown History aspirin 81 mg tablet,delayed 81 mg PO BID 06/06/25 Unknown History release brexpiprazole 3 mg tablet (Rexulti) 3 mg PO DAILY 06/06/25 Unknown History bupropion HCl 300 mg 24 hr tablet, 300 mg PO DAILY 06/06/25 Unknown History extended release jjfryekkfb-frpcmycarlxdf-sqcmchsj 1 - 2 tab PO Q4H PRN PRN headache 06/06/25 Unknown History 50 mg-325 mg-40 mg tablet empagliflozin 10 mg tablet 10 mg PO DAILY 06/06/25 Unknown History (Jardiance) furosemide 40 mg tablet 40 mg PO DAILY 06/06/25 Unknown History meloxicam 15 mg tablet 15 mg PO DAILY 06/06/25 Unknown History metoprolol succinate 100 mg 100 mg PO DAILY 06/06/25 Unknown History tablet,extended release 24 hr metoprolol succinate 50 mg 50 mg PO QHS 06/06/25 Unknown History tablet,extended release 24 hr omeprazole 40 mg capsule,delayed 40 mg PO DAILY 06/06/25 Unknown History release oxycodone 5 mg tablet 5 - 10 mg PO Q4H PRN PRN pain 06/06/25 Unknown History pregabalin 150 mg capsule 150 mg PO TID 06/06/25 Unknown History sacubitril 97 mg-valsartan 103 mg 1 tab PO BID 06/06/25 Unknown History tablet spironolactone 25 mg tablet 25 mg PO DAILY 06/06/25 Unknown History sumatriptan succinate 100 mg tablet 100 mg PO DAILY PRN migraine 06/06/25 Unknown History tirzepatide (weight loss) 15 15 mg subcut QWEEK 06/06/25 Unknown History mg/0.5 mL subcutaneous pen injector (Zepbound) trazodone 150 mg tablet 150 mg PO QHS 06/06/25 Unknown History venlafaxine 150 mg 150 mg PO DAILY 06/06/25 Unknown History capsule,extended release 24 hr venlafaxine 75 mg capsule,extended 75 mg PO DAILY 06/06/25 Unknown History release 24 hr Allergy/AdvReac Type Severity Reaction Status Date / Time No Known Allergies Allergy Verified 06/06/25 12:31 Surgical History (Updated 06/06/25 @ 15:47 by Lasha West) History of surgical removal of skin lesion H/O gastric sleeve History of carpal tunnel surgery History of hip surgery H/O right knee surgery Total knee replacement status Social History Smoking Status: Never smoker ROS ROS Narrative negative except above Physical Exam Narrative Alert awake oriented x 3 no obvious distress no pallor no icterus no JVD s1s2 no murmurs lungs clear abdomen soft no organomegaly Lab / Micro Data 06/08/25 14:38 06/08/25 14:38 Labs: Laboratory Results - last 24 hr 06/08/25 07:55: WBC 18.8 H, RBC 4.44, Hgb 13.5, Hct 42.2, MCV 95.0, MCH 30.4, MCHC 32.0, RDW Std Deviation 47.0 H, RDW Coeff of Porfirio 13.4, Plt Count 203, MPV 10.6, Immature Gran % (Auto) 1.000 H, Neut % (Auto) 85.7 H, Lymph % (Auto) 5.6 L, [place] % (Auto) 7.1, Eos % (Auto) 0.4, Baso % (Auto) 0.2, Absolute Neuts (auto) 16.1 H, Absolute Lymphs (auto) 1.06, Nucleated RBC % 0, Sodium 135, Potassium 4.7, Chloride 99, Carbon Dioxide 22.8, Anion Gap 13, BUN 59 H, Creatinine 2.94 H, Estim Creat Clear Calc 47.18 L, Est GFR (MDRD) Non-Af 19 L, BUN/Creatinine Ratio 20.2 H, Glucose 143 H, Calcium 8.9, Procalcitonin 0.19 H 06/08/25 11:05: Urine Color Yellow, Urine Clarity Sl. Cloudy, Urine pH 5.0, Ur Specific Start 1.020, Urine Protein 30 H, Urine Glucose (UA) 100 H, Urine Ketones 5 H, Urine Occult Blood Negative, Urine Nitrite Negative, Urine Bilirubin Negative, Urine Urobilinogen 1 H, Ur Leukocyte Esterase 25 H, Urine RBC 0 SEEN, Urine WBC 0-5 SEEN, Ur Squamous Epith Cells 0-5 SEEN, Urine Bacteria 3+, Urine Mucus RARE, Ur Random Sodium 29, Urine Creatinine 146.00, Urine Potassium 64.0, Urine Chloride < 20, Urine Urea Nitrogen 724 06/08/25 14:38: WBC 22.5 H, RBC 4.18 L, Hgb 12.7, Hct 40.1, MCV 95.9, MCH 30.4, MCHC 31.7 L, RDW Std Deviation 47.8 H, RDW Coeff of Porfirio 13.5, Plt Count 186, MPV 11.0, Immature Gran % (Auto) 0.900, Neut % (Auto) 84.7 H, Lymph % (Auto) 5.0 L, [place] % (Auto) 8.8, Eos % (Auto) 0.3, Baso % (Auto) 0.3, Absolute Neuts (auto) 19.1 H, Absolute Lymphs (auto) 1.13, Nucleated RBC % 0, Sodium 133, Potassium 4.4, Chloride 96 L, Carbon Dioxide 20.3 L, Anion Gap 16 H, BUN 63 H, Creatinine 3.50 H, Estim Creat Clear Calc 39.63 L, Est GFR (MDRD) Non-Af 15 L, BUN/Creatinine Ratio 18.0, Glucose 116 H, Lactic Acid 3.3 H*, Calcium 8.6, Total Bilirubin 1.43 H, Direct Bilirubin 0.85 H, AST 23, ALT 27, Alkaline Phosphatase 119 H, Total Creatine Kinase 144, Total Protein 6.2, Albumin 3.1 L, Globulin 3.1 Imaging Radiology Impression Renal Ultrasound 06/08/25 09:20 IMPRESSION: No collecting system dilation. Reading Location: [id number] Femur X-Ray 06/08/25 16:25 IMPRESSION: NO ACUTE FRACTURE OR DISLOCATION. Reading Location: [id number] Tibia/Fibula X-Ray 06/08/25 16:25 IMPRESSION: NO ACUTE FRACTURE OR DISLOCATION. Reading Location: [id number]
--- NOTE | 2025-06-08 18:56 | NURSING ---
this nurse in to assist patient back to bed from bsc. when pt up to bsc utilized 3 assist, gait belt and walker. pt moved fairly well and was able to bear weight on her legs moved her legs independently stepping to bsc. Going back to bed despite multiple cueing patient not bearing weight on legs to go back to bed. emotional encouragement given as pt repeatedly states she just can't do it. required x6+ staff to get patient to safely stand encourage to exchange bsc for recliner. patient placed in recline position with legs elevated. call light within reach.
[2025-06-08 20:13] LABS: Reflex Lactate? Y
[2025-06-08] MEDS: Piperacil/Tazobactam 3.375 GM in 0.9% Normal Saline (50mL MB+) 50 ML IV (21:42)
--- NOTE | 2025-06-08 22:01 | PCM.HOSP.N ---
Hospitalist Note Pt straight cath'd for over 1L. Staff noting that she is less willing/able to assist with her own transfers, calling on ancillary staff for transfers of 6-7 team members. Order placed for [place] cath d/t urinary retention.
[2025-06-09] VITALS (10 sets, daily range): BP systolic 94–123; BP diastolic 40–81; PULSE 95–110; RESP 16–18; TEMP 36.8–37.2; O2SAT 95–97; BMI 63.2
[2025-06-09] MEDS: Piperacil/Tazobactam 3.375 GM in 0.9% Normal Saline (50mL MB+) 50 ML IV ×3 (06:39→23:07)
[2025-06-09 07:20] LABS: Hematocrit 36.8 % (37-47); Hemoglobin 12.0 g/dL (12.0-15.0); Immature Granulocytes Count 0.190 X10^3/uL (0.0-0.0); Mean Corp Hgb Conc 32.6 g/dL (32-36); Mean Corpuscular Volume 93.9 fL (81-99); Mean Platelet Vol. 11.1 fl (6.2-12.0); NRBC Flagged by Analyzer 0 % (0-5); Platelet Count 150 K/mm3 (150-450); RBC Distribution Width CV 13.5 % (11.6-14.6); RBC Distribution Width SD 46.7 fl (35.1-43.9); Red Blood Count 3.92 M/mm3 (4.2-5.4); White Blood Count 20.5 K/mm3 (4.4-11.0)
[2025-06-09 07:56] LABS: Anion Gap 16 (5-15); BUN 69 mg/dL (4-19); BUN/Creat Ratio 18.8 RATIO (10-20); Calcium,Total 8.5 mg/dL (7.6-11.0); Carbon Dioxide 17.2 mmol/L (21.0-32.0); Chloride 98 mmol/L (98-108); Estimated Creatinine Clearance 38.80 ml/min (50-250); Glucose 124 mg/dL (70-99); Potassium 4.2 mmol/L (3.3-5.1)
[2025-06-09] MEDS: BREXPIPRAZOLE 3 MG PO (09:35)
[2025-06-09] MEDS: buPROPion (XL) 300 MG TABLET.XL PO (09:36)
--- NOTE | 2025-06-09 13:01 | PCM.PN.HOSP ---
Reason for Visit Chief Complaint: Fall with right knee pain Subjective Subjective Feeling very weak, is feeling little bit better today compared to yesterday, denies any lightheadedness at this time Objective Data Objective Data Vital Signs: Vital Signs Temp Pulse Resp BP Pulse Ox O2 Del Method 98.2 F 108 H 16 100/58 L 96 Room Air 06/09/25 10:00 06/09/25 10:00 06/09/25 10:00 06/09/25 10:00 06/09/25 10:00 06/09/25 10:00 Oxygen Delivery Method Room Air Weight: 216.5 kg Body Mass Index (BMI) 63.2 Intake & Output: Intake and Output for Last 24 Hours 06/07/25 06/08/25 06/09/25 23:59 23:59 23:59 Intake Total 831.67 / 1231.67 2721.67 / 2721.67 255.00 / 255.00 Output Total 200 / 300 1675 / 1675 350 / 350 Balance 631.67 / 931.67 1046.67 / 1046.67 -95.00 / -95.00 Lab / Micro Data 06/09/25 07:06 06/09/25 07:06 Labs: Laboratory Results - last 24 hr 06/08/25 14:38: WBC 22.5 H, RBC 4.18 L, Hgb 12.7, Hct 40.1, MCV 95.9, MCH 30.4, MCHC 31.7 L, RDW Std Deviation 47.8 H, RDW Coeff of Porfirio 13.5, Plt Count 186, MPV 11.0, Immature Gran % (Auto) 0.900, Neut % (Auto) 84.7 H, Lymph % (Auto) 5.0 L, [place] % (Auto) 8.8, Eos % (Auto) 0.3, Baso % (Auto) 0.3, Absolute Neuts (auto) 19.1 H, Absolute Lymphs (auto) 1.13, Nucleated RBC % 0, Sodium 133, Potassium 4.4, Chloride 96 L, Carbon Dioxide 20.3 L, Anion Gap 16 H, BUN 63 H, Creatinine 3.50 H, Estim Creat Clear Calc 39.63 L, Est GFR (MDRD) Non-Af 15 L, BUN/Creatinine Ratio 18.0, Glucose 116 H, Lactic Acid 3.3 H*, Calcium 8.6, Total Bilirubin 1.43 H, Direct Bilirubin 0.85 H, AST 23, ALT 27, Alkaline Phosphatase 119 H, Total Creatine Kinase 144, Total Protein 6.2, Albumin 3.1 L, Globulin 3.1 06/08/25 20:37: Lactic Acid 2.1 H* 06/09/25 07:06: WBC 20.5 H, RBC 3.92 L, Hgb 12.0, Hct 36.8 L, MCV 93.9, MCH 30.6, MCHC 32.6, RDW Std Deviation 46.7 H, RDW Coeff of Porfirio 13.5, Plt Count 150, MPV 11.1, Immature Gran % (Auto) 0.900, Neut % (Auto) 85.8 H, Lymph % (Auto) 5.9 L, [place] % (Auto) 6.7, Eos % (Auto) 0.5, Baso % (Auto) 0.2, Absolute Neuts (auto) 17.6 H, Absolute Lymphs (auto) 1.21, Nucleated RBC % 0, Sodium 130 L, Potassium 4.2, Chloride 98, Carbon Dioxide 17.2 L, Anion Gap 16 H, BUN 69 H, Creatinine 3.65 H, Estim Creat Clear Calc 38.80 L, Est GFR (MDRD) Non-Af 15 L, BUN/Creatinine Ratio 18.8, Glucose 124 H, Calcium 8.5 Micro: Microbiology 06/08/25 11:05 Urine, Catheterized Urine Culture - Preliminary Culture exhibits no growth. Radiography Diagnostic Testing: Radiology Impression Femur X-Ray 06/08/25 16:25 IMPRESSION: NO ACUTE FRACTURE OR DISLOCATION. Reading Location: [facility] Tibia/Fibula X-Ray 06/08/25 16:25 IMPRESSION: NO ACUTE FRACTURE OR DISLOCATION. Reading Location: [facility] Physical Exam Narrative General: Alert, oriented, no apparent distress HEENT: Atraumatic, normocephalic Eyes: Anicteric, normal conjunctiva, extraocular movements grossly intact Neck: Supple Respiratory: Clear to auscultation bilaterally, normal respiratory effort Cardiovascular: Regular rate and rhythm GI: Soft, nontender, nondistended Extremities: Nonpitting Musculoskeletal: Has pain when moving extremities Neuro: No overt focal neurological deficits Skin: No overt rashes appreciated Psych: Cooperative Assessment & Plan Assessment/Plan (1) Inability to ambulate due to right knee: (2) MARIELLA (acute kidney injury): PLAN: Plan #MARIELLA -06/08: On admission patient with BUN of 32 and creatinine 1.19, patient awaiting placement with no acute complaints aside from the knee pain so labs were not repeated 06/07 however decided to repeat routine labs 06/08 which noted a creatinine of 2.94. Unclear if this could be due to patient's low blood pressure in addition to her home medications and the meloxicam she was on but will hold meloxicam, Entresto, Aldactone, Lasix, Jardiance and down titrate metoprolol, obtain urine lytes and a kidney and bladder ultrasound and repeat BMP this afternoon. Monitoring I's and O's as able and daily weights ordered. Blood pressure is much better today. Will need to carefully monitor volume status given patient's cardiomyopathy though she reports EF is much better than previous most recently 40%. -06/09: Creatinine in the afternoon 06/08 increased to 3.5, IV fluids started, home meds continue to be held and nephrology consulted. Is suspected due to patient's low BP likely in addition to her other medicines. Seems to be leveling off now, remains on IV fluids. Appreciate nephrology. Also of note it had not seemed as though patient was retaining however she was bladder scanned overnight and did seem to be retaining so she had Barahona placed with the thousand out, will maintain Barahona at this time # Leukocytosis -06/08: Unclear etiology, patient with no focal complaints, denies any diarrhea or burning on urination, no shortness of breath. Pro-Dionicio 0.19, recommend interpretation is that a Pro-Dionicio less than 0.29 antibiotic therapy is discouraged as bacterial infection is unlikely. Patient afebrile, will check UA and blood culture but will hold off on empiric antibiotics pending further workup and vitals -06/09: Patient noted further increase in white count to 22.5 with increase in ANC so she was started on empiric antibiotics especially given worsening kidney function. Urine culture no growth, still unclear if leukocytosis this is reactive, blood cultures pending, not having focal complaints but today white count slightly decreased as is ANC. 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 osteoarthritis with joint space narrowing and marginal osteophytes, small visible joint effusion noted otherwise no fractures or dislocations - Given recent left knee replacement in addition to right knee pain patient had significant difficulty ambulating so was admitted for further management - Schedule Tylenol - Pain control/report of care - PT/OT - Plan is for placement in the [facility] where patient is from and where her orthopedic surgeon is -06/08: Referrals have been sent for SNF -06/09: Repeat x-rays of lower extremity did not show any acute process # Recent left knee replacement - Continue aspirin 81 mg twice daily -06/08: Continue PT/OT -06/09: Plan is for SNF on discharge, referrals pending # History of cardiomyopathy - No echo available in our system - Patient is on Jardiance, spironolactone, Entresto, metoprolol, furosemide - Has had problems with soft blood pressure especially in addition to her pain medications - Slightly down titrating Entresto metoprolol, holding parameters for spironolactone and Entresto added as well - Will add daily weights and I's and O's -06/08: Have held multiple home medications and down titrated metoprolol, BP is better today after IV fluids and holding medications, per patient most recent EF was 40%. Continue to monitor daily weights and I's and O's -06/09: Patient continued on IV fluids with home meds held. Will slightly decrease the rate, patient now has Barahona catheter, monitor I's and O's, denies any shortness of breath. Continue to monitor for fluid overload Chronic medical problems and/or problems not being actively addressed during today's encounter: #Depression/anxiety -Continue home medications #GERD -Continue PPI # History of fibromyalgia - Supportive care #Morbid obesity -BMI documented as 61 kg/m? at time of admission -Complicates treatment, prognosis, outcomes -Recommend weight loss and lifestyle changes #DVT ppx: Patient on aspirin 81 mg twice daily for DVT prophylaxis postoperatively, this has been continued Stella Don MD Time spent in the patient's overall evaluation,decision-making process, review of diagnostic data, adjustment of management, discussion with other providers, nursing nursing and ancillary staff involved in patient's care documentation, 40 Minutes Charges/Coding Visit Charges Inpatient E&M: 14547 Subs Hosp L2
[2025-06-09] MEDS: 0.9% Normal Saline (1000mL) 1,000 ML 50 ML IV (14:51)
[2025-06-10] VITALS (9 sets, daily range): BP systolic 91–121; BP diastolic 49–90; PULSE 98–115; RESP 16–18; TEMP 36.5–36.9; O2SAT 94–100; BMI 63.2
--- NOTE | 2025-06-10 01:26 | PCM.HOSP.N ---
Hospitalist Note Called as patient has had some ongoing hypotension with her last 2 blood pressures being 94/40 and 94/51. Maps are currently 65 or greater. Will check lactate to assess for significance. Please hold on metoprolol. If lactate is elevated will give a bolus.
[2025-06-10 02:57] LABS: Hematocrit 34.5 % (37-47); Hemoglobin 11.1 g/dL (12.0-15.0); Immature Granulocytes Count 0.170 X10^3/uL (0.0-0.0); Mean Corp Hgb Conc 32.2 g/dL (32-36); Mean Corpuscular Volume 94.0 fL (81-99); Mean Platelet Vol. 11.6 fl (6.2-12.0); NRBC Flagged by Analyzer 0 % (0-5); Platelet Count 164 K/mm3 (150-450); RBC Distribution Width CV 13.5 % (11.6-14.6); RBC Distribution Width SD 46.6 fl (35.1-43.9); Red Blood Count 3.67 M/mm3 (4.2-5.4); White Blood Count 17.8 K/mm3 (4.4-11.0)
[2025-06-10 03:40] LABS: AST(SGOT) 17 U/L (<=31); Alanine Aminotransfer ALT/SGPT 20 U/L (<=34); Albumin, Serum 2.8 g/dL (3.5-5.0); Alkaline Phosphatase 113 U/L (35-104); Anion Gap 15 (5-15); BUN 63 mg/dL (4-19); BUN/Creat Ratio 22.7 RATIO (10-20); Calcium,Total 8.7 mg/dL (7.6-11.0); Carbon Dioxide 16.6 mmol/L (21.0-32.0); Chloride 99 mmol/L (98-108); Estimated Creatinine Clearance 51.50 ml/min (50-250); Globulin 3.3 g/dL (2.2-4.2); Glucose 122 mg/dL (70-99); Potassium 4.1 mmol/L (3.3-5.1)
[2025-06-10] MEDS: Piperacil/Tazobactam 3.375 GM in 0.9% Normal Saline (50mL MB+) 50 ML IV ×3 (05:57→21:15)
[2025-06-10] MEDS: BREXPIPRAZOLE 3 MG PO (10:03)
[2025-06-10] MEDS: buPROPion (XL) 300 MG TABLET.XL PO (10:03)
--- NOTE | 2025-06-10 12:19 | PCM.PN.HOSP ---
Reason for Visit Chief Complaint: Fall with right knee pain Subjective Subjective Reports she is feeling better than she was, denies shortness of breath, reports pain is about the same with no focal tenderness, was up on the side of the bed so reports that hurts a little bit more after that but overall not significantly changed. Urine output improving, improving p.o. intake, had been constipated but has since had bowel movement, does note a little bit of nausea but no vomiting Objective Data Objective Data Vital Signs: Vital Signs Temp Pulse Resp BP Pulse Ox O2 Del Method O2 Flow Rate 97.8 F 110 H 18 91/49 L 95 Nasal Cannula 2 06/10/25 10:18 06/10/25 10:18 06/10/25 10:18 06/10/25 10:18 06/10/25 10:18 06/10/25 10:18 06/10/25 10:18 Oxygen Flow Rate (L/min) 2 Oxygen Delivery Method Nasal Cannula Weight: 216.4 kg Body Mass Index (BMI) 63.2 Intake & Output: Intake and Output for Last 24 Hours 06/08/25 06/09/25 06/10/25 23:59 23:59 23:59 Intake Total 2721.67 / 2721.67 3125.00 / 3625.00 1400 / 1400 Output Total 1675 / 1675 1530 / 2230 2400 / 2400 Balance 1046.67 / 1046.67 1595.00 / 1395.00 -1000 / -1000 Lab / Micro Data 06/10/25 01:48 06/10/25 01:48 Labs: Laboratory Results - last 24 hr 06/10/25 01:48: WBC 17.8 H, RBC 3.67 L, Hgb 11.1 L, Hct 34.5 L, MCV 94.0, MCH 30.2, MCHC 32.2, RDW Std Deviation 46.6 H, RDW Coeff of Porfirio 13.5, Plt Count 164, MPV 11.6, Immature Gran % (Auto) 1.000 H, Neut % (Auto) 83.3 H, Lymph % (Auto) 7.0 L, [place] % (Auto) 7.9, Eos % (Auto) 0.6, Baso % (Auto) 0.2, Absolute Neuts (auto) 14.9 H, Absolute Lymphs (auto) 1.25, Nucleated RBC % 0, Sodium 130 L, Potassium 4.1, Chloride 99, Carbon Dioxide 16.6 L, Anion Gap 15, BUN 63 H, Creatinine 2.75 H, Estim Creat Clear Calc 51.50, Est GFR (MDRD) Non-Af 21 L, BUN/Creatinine Ratio 22.7 H, Glucose 122 H, Lactic Acid < 1.0, Calcium 8.7, Total Bilirubin 0.97, AST 17, ALT 20, Alkaline Phosphatase 113 H, Total Protein 6.1, Albumin 2.8 L, Globulin 3.3, Albumin/Globulin Ratio 0.8 L Micro: Microbiology 06/08/25 10:32 Blood Culture (Wb) - Right Hand Blood Culture - Preliminary No growth in 48 hours. 06/08/25 11:05 Urine, Catheterized Urine Culture - Preliminary Alpha hemolytic organism Physical Exam Narrative General: Alert, oriented, no apparent distress HEENT: Atraumatic, normocephalic Eyes: Anicteric, normal conjunctiva, extraocular movements grossly intact Neck: Supple Respiratory: Diminished to the bases but suspect due to body habitus Cardiovascular: Regular rate and rhythm GI: Soft, nontender, nondistended Extremities: Nonpitting Musculoskeletal: Has pain when moving extremities, not particularly tender on palpation of right knee Neuro: No overt focal neurological deficits Skin: No overt rashes appreciated Psych: Cooperative Assessment & Plan Assessment/Plan (1) Inability to ambulate due to right knee: (2) MARIELLA (acute kidney injury): PLAN: Plan #MARIELLA -06/08: On admission patient with BUN of 32 and creatinine 1.19, patient awaiting placement with no acute complaints aside from the knee pain so labs were not repeated 06/07 however decided to repeat routine labs 06/08 which noted a creatinine of 2.94. Unclear if this could be due to patient's low blood pressure in addition to her home medications and the meloxicam she was on but will hold meloxicam, Entresto, Aldactone, Lasix, Jardiance and down titrate metoprolol, obtain urine lytes and a kidney and bladder ultrasound and repeat BMP this afternoon. Monitoring I's and O's as able and daily weights ordered. Blood pressure is much better today. Will need to carefully monitor volume status given patient's cardiomyopathy though she reports EF is much better than previous most recently 40%. -06/09: Creatinine in the afternoon 06/08 increased to 3.5, IV fluids started, home meds continue to be held and nephrology consulted. Is suspected due to patient's low BP likely in addition to her other medicines. Seems to be leveling off now, remains on IV fluids. Appreciate nephrology. Also of note it had not seemed as though patient was retaining however she was bladder scanned overnight and did seem to be retaining so she had Barahona placed with the thousand out, will maintain Barahona at this time -06/10: Creatinine down to 2.75 with fluids and supportive care and holding home medications, given her history of cardiomyopathy we will hold further fluids as she has had improved p.o. intake and is having improved urine output with Barahona in place. Given creatinine is still above baseline we will hold off on resuming other home medications at this time and continue supportive care. BP quite variable but overall remains on the low side, but may be in part due to her underlying cardiomyopathy but cannot say definitively, continue to hold medications that would negatively impact blood pressure, holding parameters on metoprolol as well. Had a lactic acid overnight due to soft blood pressures that was normal, bilirubin normal this a.m., creatinine downtrending, white blood cell count downtrending, blood culture no growth to date, urine culture growing alphahemolytic organism but only 25-50,000 colonies, patient empirically continued on antibiotics while awaiting final culture. Will order echocardiogram given patient's blood pressure to monitor EF, she reports her most recent EF was 40% but unclear if it is reduced and that may be causing some patient's blood pressure fluctuations # Leukocytosis -06/08: Unclear etiology, patient with no focal complaints, denies any diarrhea or burning on urination, no shortness of breath. Pro-Dionicio 0.19, recommend interpretation is that a Pro-Dionicio less than 0.29 antibiotic therapy is discouraged as bacterial infection is unlikely. Patient afebrile, will check UA and blood culture but will hold off on empiric antibiotics pending further workup and vitals -06/09: Patient noted further increase in white count to 22.5 with increase in ANC so she was started on empiric antibiotics especially given worsening kidney function. Urine culture no growth, still unclear if leukocytosis this is reactive, blood cultures pending, not having focal complaints but today white count slightly decreased as is ANC. Unable to obtain CAT scan due to body habitus but patient now does seem to be stabilizing -06/10: Downtrending, UA growing alphahemolytic organism but 25-50,000 colonies, blood culture no growth to date, has been continued on empiric antibiotics given unclear cause of the leukocytosis, continue to follow cultures. Kidney function is improving, lactic completely normal overnight, total bili normalized. BP has been quite variable but still on the low side, will obtain echocardiogram as above to reassess EF in the event patient has further reduced EF contributing to current picture lastly will also consult infectious disease for evaluation tomorrow given the continued uncertainties with white count still being elevated in addition to unclear significance of urine culture in this context # Right knee pain after fall - Right knee x-ray showed moderate to severe tricompartment osteoarthritis with joint space narrowing and marginal osteophytes, small visible joint effusion noted otherwise no fractures or dislocations - Given recent left knee replacement in addition to right knee pain patient had significant difficulty ambulating so was admitted for further management - Schedule Tylenol - Pain control/report of care - PT/OT - Plan is for placement in the [facility] where patient is from and where her orthopedic surgeon is -06/08: Referrals have been sent for SNF -06/09: Repeat x-rays of lower extremity did not show any acute process -06/10: Continue PT/OT, requires significant assistance for most tasks at this time, plan is for placement, awaiting acceptance # Recent left knee replacement - Continue aspirin 81 mg twice daily -06/08: Continue PT/OT -06/09: Plan is for SNF on discharge, referrals pending -06/10: Referral still pending # History of cardiomyopathy - No echo available in our system - Patient is on Jardiance, spironolactone, Entresto, metoprolol, furosemide - Has had problems with soft blood pressure especially in addition to her pain medications - Slightly down titrating Entresto metoprolol, holding parameters for spironolactone and Entresto added as well - Will add daily weights and I's and O's -06/08: Have held multiple home medications and down titrated metoprolol, BP is better today after IV fluids and holding medications, per patient most recent EF was 40%. Continue to monitor daily weights and I's and O's -06/09: Patient continued on IV fluids with home meds held. Will slightly decrease the rate, patient now has Barahona catheter, monitor I's and O's, denies any shortness of breath. Continue to monitor for fluid overload -06/10: Given urine output is improving and p.o. is improving with improving kidney function will try to hold fluids to avoid overload, echocardiogram as above Chronic medical problems and/or problems not being actively addressed during today's encounter: #Depression/anxiety -Continue home medications #GERD -Continue PPI # History of fibromyalgia - Supportive care #Morbid obesity -BMI documented as 61 kg/m? at time of admission -Complicates treatment, prognosis, outcomes -Recommend weight loss and lifestyle changes #DVT ppx: Patient on aspirin 81 mg twice daily for DVT prophylaxis postoperatively, this has been continued Stella Don MD Time spent in the patient's overall evaluation,decision-making process, review of diagnostic data, adjustment of management, discussion with other providers, nursing nursing and ancillary staff involved in patient's care documentation, 42 Minutes Charges/Coding Visit Charges Inpatient E&M: 13398 Subs Hosp L2
--- NOTE | 2025-06-10 12:23 | ECHOCS_ITS ---
Reason For Study Reason For Study: CARDIOMYOPATHY Procedure This was a 2D Doppler, Color Flow transthoracic echocardiogram. The study was technically difficult. Contrast injection was performed. Exam performed portable in patient room. Left Ventricle Normal size and thickness. Borderline LV systolic function. Estimated LVEF 45 to 50%. At least stage I diastolic dysfunction. Right Ventricle The right ventricle is not well visualized. Atria Normal left atrium. The right atrium is not well visualized. Mitral Valve Mitral valve not well visualized. Tricuspid Valve The tricuspid valve is not well visualized. Aortic Valve Trisinus/trileaflet aortic valve. Pulmonic Valve The pulmonic valve is not well visualized. Great Vessels The aortic root is not well visualized. Pericardium/Pleural No pericardial effusion. Medication Diluted definity 2.5ml given slow IV push to enhance endocardial definition. MMode/2D Measurements & Calculations asc Aorta Diam: 2.8 cm LAV(MOD-bp): 29.9 ml LVAd ap4: 32.3 cm2 LAV(MOD-bp) Indexed: 9.6 ml/m2 LVLd ap4: 8.5 cm LAV(MOD-sp2): 29.5 ml EDV(MOD-sp4): 102.2 ml LAV(MOD-sp4): 25.5 ml EDV(sp4-el): 104.5 ml LVAs ap4: 20.5 cm2 LVLs ap4: 7.5 cm ESV(MOD-sp4): 46.7 ml ESV(sp4-el): 47.9 ml EF(MOD-sp4): 54.3 % EF(sp4-el): 54.1 % LVAd ap2: 28.0 cm2 SV(MOD-sp4): 55.5 ml SV(MOD-sp2): 40.7 ml LVLd ap2: 8.2 cm SI(MOD-sp4): 17.8 ml/m2 SI(MOD-sp2): 13.1 ml/m2 EDV(MOD-sp2): 80.7 ml EDV(sp2-el): 81.4 ml LVAs ap2: 18.0 cm2 LVLs ap2: 6.9 cm ESV(MOD-sp2): 40.0 ml ESV(sp2-el): 39.8 ml EF(MOD-sp2): 50.4 % SV(sp4-el): 56.5 ml LA A4 area: 12.1 cm2 Doppler Measurements & Calculations MV E max guillermo: 87.2 cm/sec Lat Peak E' Guillermo: 16.7 cm/sec Med Peak E' Guillermo: 18.1 cm/sec E/E' lat: 5.2 E/E' med: 4.8 MV P1/2t max guillermo: 88.0 cm/sec PA V2 max: 111.8 cm/sec MV P1/2t: 20.9 msec MV dec slope: 1233 cm/sec2 MVA(P1/2t): 10.5 cm2 ECHO/Echo Complete W/ Contrast Interpretation Summary Technically difficult study with suboptimal images. Borderline LV systolic function. Estimated LVEF 45 to 50%. At least stage I jessenia stolic dysfunction. Ordering Physician: Stella Don Referring Physician: Sophia Noel Performed By: Lucy Randolph RDCS
[2025-06-11 03:53] LABS: Hematocrit 32.7 % (37-47); Hemoglobin 10.7 g/dL (12.0-15.0); Immature Granulocytes Count 0.110 X10^3/uL (0.0-0.0); Mean Corp Hgb Conc 32.7 g/dL (32-36); Mean Corpuscular Volume 94.0 fL (81-99); Mean Platelet Vol. 11.4 fl (6.2-12.0); NRBC Flagged by Analyzer 0 % (0-5); Platelet Count 167 K/mm3 (150-450); RBC Distribution Width CV 13.9 % (11.6-14.6); RBC Distribution Width SD 47.6 fl (35.1-43.9); Red Blood Count 3.48 M/mm3 (4.2-5.4); White Blood Count 12.3 K/mm3 (4.4-11.0)
[2025-06-11 04:00] VITALS: BP 106/59; PULSE 110; RESP 16; TEMP 36.6; O2SAT 95
[2025-06-11 04:27] LABS: Anion Gap 12 (5-15); BUN 44 mg/dL (4-19); BUN/Creat Ratio 26.6 RATIO (10-20); Calcium,Total 8.7 mg/dL (7.6-11.0); Carbon Dioxide 18.3 mmol/L (21.0-32.0); Chloride 105 mmol/L (98-108); Estimated Creatinine Clearance 84.79 ml/min (50-250); Glucose 108 mg/dL (70-99); Potassium 3.8 mmol/L (3.3-5.1)
[2025-06-11 05:39] VITALS: BMI 63.5
[2025-06-11] MEDS: Piperacil/Tazobactam 3.375 GM in 0.9% Normal Saline (50mL MB+) 50 ML IV ×2 (06:20→13:36)
[2025-06-11 07:22] VITALS: O2SAT 95
[2025-06-11] MEDS: Senna/Docusate Sodium 1 Tablet 2 TABLET PO (08:29)
[2025-06-11] MEDS: BREXPIPRAZOLE 3 MG PO (08:30)
[2025-06-11] MEDS: buPROPion (XL) 300 MG TABLET.XL PO (08:31)
[2025-06-11 09:18] VITALS: BP 100/61; PULSE 119; RESP 16; TEMP 36.9; O2SAT 98
--- NOTE | 2025-06-11 09:35 | CASEMGMT ---
Addendum entered by Ngoc Ann 06/11/25 13:54: All three have declined. RN CM updated. Ngoc Ann DC Planning Asst. Original Note: Discharge Planning Call rec'd from admissions @ [facility] and [facility]. She requested that referral be resent. [place] also [place] [facility] Ngoc Ann DC Planning Asst.
--- NOTE | 2025-06-11 09:55 | PCM.PN.HOSP ---
Reason for Visit Chief Complaint: Fall with right knee pain Objective Data Objective Data Vital Signs: Vital Signs Temp Pulse Resp BP Pulse Ox O2 Del Method O2 Flow Rate 98.4 F 119 H 16 100/61 98 Room Air 2 06/11/25 09:18 06/11/25 09:18 06/11/25 09:18 06/11/25 09:18 06/11/25 09:18 06/11/25 09:18 06/11/25 07:22 Oxygen Flow Rate (L/min) 2 Oxygen Delivery Method Room Air Weight: 479 lb 4.559 oz Body Mass Index (BMI) 63.5 Intake & Output: Intake and Output for Last 24 Hours 06/09/25 06/10/25 06/11/25 23:59 23:59 23:59 Intake Total 3125.00 / 3625.00 4000 / 4000 650 / 650 Output Total 1530 / 2230 4400 / 4400 850 / 850 Balance 1595.00 / 1395.00 -400 / -400 -200 / -200 Lab / Micro Data 06/11/25 03:33 06/11/25 03:33 Labs: Laboratory Results - last 24 hr 06/11/25 03:33: WBC 12.3 H, RBC 3.48 L, Hgb 10.7 L, Hct 32.7 L, MCV 94.0, MCH 30.7, MCHC 32.7, RDW Std Deviation 47.6 H, RDW Coeff of Porfirio 13.9, Plt Count 167, MPV 11.4, Immature Gran % (Auto) 0.900, Neut % (Auto) 76.8 H, Lymph % (Auto) 10.1 L, [place] % (Auto) 10.9 H, Eos % (Auto) 1.1, Baso % (Auto) 0.2, Absolute Neuts (auto) 9.5 H, Absolute Lymphs (auto) 1.25, Nucleated RBC % 0, Sodium 135, Potassium 3.8, Chloride 105, Carbon Dioxide 18.3 L, Anion Gap 12, BUN 44 H, Creatinine 1.67 H, Estim Creat Clear Calc 84.79, Est GFR (MDRD) Non-Af 37 L, BUN/Creatinine Ratio 26.6 H, Glucose 108 H, Calcium 8.7 Micro: Microbiology 06/08/25 10:32 Blood Culture (Wb) - Right Hand Blood Culture - Preliminary No growth in 48 hours. 06/08/25 11:05 Urine, Catheterized Urine Culture - Preliminary Alpha hemolytic organism Physical Exam Narrative Seen and examined. Patient is morbidly obese and requires many people for assistance. Admitted after a fall and twisted her good leg, right leg. Recent left TKR. She denies any prosthesis besides left TKR including pacemaker or artificial valve. No fever or acute URI or LUTS. No rash. Physical exam General: Alert, Oriented x3, Cooperative. Morbid obesity BMI 63.2 kg/m? HEENT: Atraumatic, PERRLA, EOMI, Normocephalic. Oral: No Gingival or Mucosal Lesions/ Ulcerations Neck: Supple, No JVD, Negative Carotid Bruits Chest wall/Lungs: Air entry diminished in bilateral lung bases. No crepitation/rhonchi Cardiovascular: Regular rate and rhythm, Normal S1,S2, No M/G/R Abdomen: Bowel Sounds Present, Soft, Non Tender, Non-Distended : No dysuria. No renal angle tenderness. No suprapubic tenderness. Extremities: No edema, Capillary Refill Less than 3 Seconds Skin: No rashes, No breakdown Musculoskeletal: ROM of right knee or hip not done because of pain. Deformity of right knee. Status post left TKR, autumn intact. Surgical incision dry and no erythema. Neurological: Cranial nerves II-XII grossly intact, DTR 2+/4. No acute focal neurological deficit. Psych/Mental Status: Flat affect. Assessment & Plan Assessment/Plan (1) Inability to ambulate due to right knee: (2) MARIELLA (acute kidney injury): PLAN: Plan 1. #MARIELLA 06/11: On admission BUN/creatinine was 32/1.19. It increased to 44/1.67. Patient was seen by oracle business analyst CPK normal. Renal ultrasound no acute abnormality. Patient had low blood pressure and CHF medication on hold. Lactate was elevated therefore ID consult was obtained. No acute focus of infection on detailed history. No fever or dysuria or LUTS. Urine culture shows 25,000?50,000 G adiacnes. Blood culture does not show growth in 48 hours. As per ID, mild strep and urine. UA was growing alphahemolytic organism. Currently on Zosyn narrowed down to IV ceftriaxone. 2. # Leukocytosis 11/10: Leukocytosis improving may be related to trauma and fall. Pro-Dionicio only minimally elevated at 0.19. Lactate as mentioned above. Seems mainly inflammatory 3. 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 Sha Barber, [facility]. Repeat x-rays of lower extremity did not show any acute process 06/11: Continue PT/OT, requires significant assistance for most tasks at this time, plan is for placement, awaiting acceptance Continue aspirin 81 mg twice daily 4. History of cardiomyopathy probably from chemotherapy of Hodgkin's lymphoma. Currently Hodgkin's lymphoma is in remission. Last chemotherapy was in 2020 -06/11: Because of low BP metoprolol was down titrated. Her other medications Entresto, furosemide, Jardiance and spironolactone were held because of MARIELLA. Urine output improving. Given urine output is improving and p.o. is improving with improving kidney function will try to hold fluids to avoid overload, echocardiogram as above 2D echo technically difficult study with suboptimal images. Borderline LV systolic function, estimated EF 45 to 50% at least stage I diastolic dysfunction. Trileaflet aortic valve rest valves not visualized. RV not visualized Interpretation Summary Technically difficult study with suboptimal images. Borderline LV systolic function. Estimated LVEF 45 to 50%. At least stage I diastolic dysfunction. #Depression/anxiety -Continue home medications #GERD -Continue PPI # History of fibromyalgia - Supportive care #Morbid obesity -BMI documented as 61 kg/m? at time of admission -Complicates treatment, prognosis, outcomes -Recommend weight loss and lifestyle changes #DVT ppx: Patient on aspirin 81 mg twice daily for DVT prophylaxis postoperatively, this has been continued Charges/Coding Visit Charges Inpatient E&M: 30695 Subs Hosp L2
[2025-06-11 11:30] VITALS: BP 104/56; PULSE 116; RESP 16; TEMP 36.6; O2SAT 95
--- NOTE | 2025-06-11 14:36 | CASEMGMT ---
NELY GUZMAN into pt room to notify top SNF choices have declined, Pt mom in the room sitting at bedside. Pt agreeable to DC planning while mom is present. NELY GUZMAN asked for her next top choices. Pt asked NELY GUZMAN to come back in a little while.
--- NOTE | 2025-06-11 14:48 | PCM.CONS.GEN ---
Assessment & Plan Assessment/Plan (1) MARIELLA (acute kidney injury): (2) Right knee pain: (3) Leukocytosis: PLAN: May have been related to trauma and the fall. Lactate was elevated as well. No fever, no focal sign of infection. UA neg, mild strep seen on Ucx. Will narrow to ceftriaxone, likely can be discharged soon off of abx. Will follow, thank you HPI Consult Data Date of Consult: 06/11/25 HPI Narrative Reason for Consultation: leukocytosis HPI Narrative: DIANNE BROWN, is a 49 F with recent L knee replacement, presented 06/06 after fall, landing on R knee. Had felt light headed. No issues with L knee incision. No fever, no cough or SOB, no dysuria or urine changes. Mild nausea. Currently on zosyn. Full ROS performed and neg except as noted above. [facility] Medical History Fibromyalgia Depression Lymphoma Cardiomyopathy HTN (hypertension) Home Medications ?Medication ?Instructions ?Recorded ?Last Taken ?Type acetaminophen 500 mg tablet 500 - 1,000 mg PO Q6H PRN PRN pain 06/06/25 Unknown History aspirin 81 mg tablet,delayed 81 mg PO BID 06/06/25 Unknown History release brexpiprazole 3 mg tablet (Rexulti) 3 mg PO DAILY 06/06/25 Unknown History bupropion HCl 300 mg 24 hr tablet, 300 mg PO DAILY 06/06/25 Unknown History extended release lxwgowwzzb-gzpvxldaghcki-rrqzloet 1 - 2 tab PO Q4H PRN PRN headache 06/06/25 Unknown History 50 mg-325 mg-40 mg tablet empagliflozin 10 mg tablet 10 mg PO DAILY 06/06/25 Unknown History (Jardiance) furosemide 40 mg tablet 40 mg PO DAILY 06/06/25 Unknown History meloxicam 15 mg tablet 15 mg PO DAILY 06/06/25 Unknown History metoprolol succinate 100 mg 100 mg PO DAILY 06/06/25 Unknown History tablet,extended release 24 hr metoprolol succinate 50 mg 50 mg PO QHS 06/06/25 Unknown History tablet,extended release 24 hr omeprazole 40 mg capsule,delayed 40 mg PO DAILY 06/06/25 Unknown History release oxycodone 5 mg tablet 5 - 10 mg PO Q4H PRN PRN pain 06/06/25 Unknown History pregabalin 150 mg capsule 150 mg PO TID 06/06/25 Unknown History sacubitril 97 mg-valsartan 103 mg 1 tab PO BID 06/06/25 Unknown History tablet spironolactone 25 mg tablet 25 mg PO DAILY 06/06/25 Unknown History sumatriptan succinate 100 mg tablet 100 mg PO DAILY PRN migraine 06/06/25 Unknown History tirzepatide (weight loss) 15 15 mg subcut QWEEK 06/06/25 Unknown History mg/0.5 mL subcutaneous pen injector (Zepbound) trazodone 150 mg tablet 150 mg PO QHS 06/06/25 Unknown History venlafaxine 150 mg 150 mg PO DAILY 06/06/25 Unknown History capsule,extended release 24 hr venlafaxine 75 mg capsule,extended 75 mg PO DAILY 06/06/25 Unknown History release 24 hr Allergy/AdvReac Type Severity Reaction Status Date / Time No Known Allergies Allergy Verified 06/06/25 12:31 Surgical History (Updated 06/06/25 @ 15:47 by Lasha West) History of surgical removal of skin lesion H/O gastric sleeve History of carpal tunnel surgery History of hip surgery H/O right knee surgery Total knee replacement status Social History Smoking Status: Never smoker Physical Exam Const alert, oriented x3 and no apparent distress General Appearance: cooperative HEENT normocephalic and head/scalp atraumatic Eyes PERRL and EOMs intact bilaterally Neck supple and No nodes Resp normal air movement and clear to auscultation bilaterally Cardio regular rate and regular rhythm GI soft to palpation, non-tender and non-distended Extremity General Extremity: edema Skin no rashes or lesions noted Skin Narrative: L knee incision healing well Neuro CN's II-XII intact bilaterally Lab / Micro Data Attestation: I reviewed the patient's lab results. 06/11/25 03:33 06/11/25 03:33 Labs: Laboratory Results - last 24 hr 06/11/25 03:33: WBC 12.3 H, RBC 3.48 L, Hgb 10.7 L, Hct 32.7 L, MCV 94.0, MCH 30.7, MCHC 32.7, RDW Std Deviation 47.6 H, RDW Coeff of Porfirio 13.9, Plt Count 167, MPV 11.4, Immature Gran % (Auto) 0.900, Neut % (Auto) 76.8 H, Lymph % (Auto) 10.1 L, [place] % (Auto) 10.9 H, Eos % (Auto) 1.1, Baso % (Auto) 0.2, Absolute Neuts (auto) 9.5 H, Absolute Lymphs (auto) 1.25, Nucleated RBC % 0, Sodium 135, Potassium 3.8, Chloride 105, Carbon Dioxide 18.3 L, Anion Gap 12, BUN 44 H, Creatinine 1.67 H, Estim Creat Clear Calc 84.79, Est GFR (MDRD) Non-Af 37 L, BUN/Creatinine Ratio 26.6 H, Glucose 108 H, Calcium 8.7 Micro: Microbiology 06/08/25 11:05 Urine, Catheterized Urine Culture - Final Granulicatella adiacens 06/08/25 10:32 Blood Culture (Wb) - Right Hand Blood Culture - Preliminary No growth in 48 hours. Imaging Radiology Impression Echocardiogram 06/10/25 12:23 Interpretation Summary Technically difficult study with suboptimal images. Borderline LV systolic function. Estimated LVEF 45 to 50%. At least stage I diastolic dysfunction. Ordering Physician: Stella Don Referring Physician: Sophia Noel Performed By: Lucy Randolph RDCS
--- NOTE | 2025-06-11 15:00 | CASEMGMT ---
NELY GUZMAN followed up with pt, [facility]. NELY GUZMAN notified DC planning technician, she will send referrals via [facility].
[2025-06-11] MEDS: Ceftriaxone 2 GM in 0.9% Normal Saline (50mL MB+) 50 ML IV (15:06)
--- NOTE | 2025-06-11 15:29 | CASEMGMT ---
Addendum entered by Ngoc Ann 06/11/25 15:58: [facility] has accepted. The others have declined. Pt would like [facility] proceed [facility] asked to submit for precert. NELY CM updated. Ngoc Ann DC Planning Asst. Original Note: Discharge Planning Referral sent to [facility], [facility], [facility], and [facility]. Ngoc Ann DC Planning Asst.
[2025-06-11 15:44] VITALS: BP 113/71; PULSE 109; RESP 16; TEMP 36.5; O2SAT 94
[2025-06-11 20:30] VITALS: BP 119/68; PULSE 117; RESP 16; TEMP 36.6; O2SAT 98
[2025-06-12 02:00] VITALS: BP 110/61; PULSE 111; RESP 16; TEMP 36.6; O2SAT 95
[2025-06-12 04:32] VITALS: BMI 64.9
[2025-06-12 06:45] LABS: Hematocrit 34.2 % (37-47); Hemoglobin 10.8 g/dL (12.0-15.0); Immature Granulocytes Count 0.130 X10^3/uL (0.0-0.0); Mean Corp Hgb Conc 31.6 g/dL (32-36); Mean Corpuscular Volume 95.0 fL (81-99); Mean Platelet Vol. 10.6 fl (6.2-12.0); NRBC Flagged by Analyzer 0 % (0-5); Platelet Count 201 K/mm3 (150-450); RBC Distribution Width CV 14.0 % (11.6-14.6); RBC Distribution Width SD 49.6 fl (35.1-43.9); Red Blood Count 3.60 M/mm3 (4.2-5.4); White Blood Count 8.9 K/mm3 (4.4-11.0)
[2025-06-12 07:20] LABS: Anion Gap 11 (5-15); BUN 23 mg/dL (4-19); BUN/Creat Ratio 24.4 RATIO (10-20); Calcium,Total 8.5 mg/dL (7.6-11.0); Carbon Dioxide 19.7 mmol/L (21.0-32.0); Chloride 107 mmol/L (98-108); Estimated Creatinine Clearance 154.88 ml/min (50-250); Glucose 90 mg/dL (70-99); Potassium 3.8 mmol/L (3.3-5.1)
[2025-06-12 07:54] VITALS: O2SAT 93
[2025-06-12 08:30] VITALS: BP 113/74; PULSE 101; RESP 18; TEMP 36.3; O2SAT 98
[2025-06-12] MEDS: Ceftriaxone 2 GM in 0.9% Normal Saline (50mL MB+) 50 ML IV (09:29)
[2025-06-12] MEDS: BREXPIPRAZOLE 3 MG PO (09:32)
[2025-06-12] MEDS: buPROPion (XL) 300 MG TABLET.XL PO (09:32)
--- NOTE | 2025-06-12 10:00 | PCM.PN.ID ---
Physical Exam Narrative Feeling better, no fever, no abd pain Const alert and no apparent distress General Appearance: cooperative Resp normal air movement and clear to auscultation bilaterally Cardio regular rate and regular rhythm GI soft to palpation, non-tender and non-distended Skin no rashes or lesions noted ID ID: Route of nutrition/ use of supplements: [] Nutritional Intake: [] IV Site: [] [place] Catheter: [] Assessment & Plan Assessment/Plan (1) MARIELLA (acute kidney injury): (2) Right knee pain: (3) Leukocytosis: PLAN: May have been related to trauma and the fall. Lactate was elevated as well. No fever, no focal sign of infection. UA neg, mild strep seen on Ucx. Will stop abx today. Will follow
[2025-06-12 14:18] VITALS: BP 103/71; PULSE 99; RESP 16; TEMP 36.8; O2SAT 99
--- NOTE | 2025-06-12 15:19 | CASEMGMT ---
[facility] rec'd auth to admit. RN CM updated. Ngoc Ann DC Planning Asst.
--- NOTE | 2025-06-12 15:32 | PN.HOSP_ITS ---
Reason for Visit Chief Complaint: Fall with right knee pain Objective Data Objective Data Vital Signs: Vital Signs Temp Pulse Resp BP Pulse Ox O2 Del Method O2 Flow Rate 98.2 F 99 16 103/71 99 Room Air 2 06/12/25 14:18 06/12/25 14:18 06/12/25 14:18 06/12/25 14:18 06/12/25 14:18 06/12/25 14:19 06/11/25 07:22 Oxygen Flow Rate (L/min) 2 Oxygen Delivery Method Room Air Weight: 489 lb 10.347 oz Body Mass Index (BMI) 64.9 Intake & Output: Intake and Output for Last 24 Hours 06/10/25 06/11/25 06/12/25 23:59 23:59 23:59 Intake Total 4000 / 4000 1518.96 / 1518.96 550 / 550 Output Total 4400 / 4400 1850 / 1850 1150 / 1150 Balance -400 / -400 -331.04 / -331.04 -600 / -600 Lab / Micro Data 06/12/25 06:05 06/12/25 06:05 Labs: Laboratory Results - last 24 hr 06/12/25 06:05: WBC 8.9, RBC 3.60 L, Hgb 10.8 L, Hct 34.2 L, MCV 95.0, MCH 30.0, MCHC 31.6 L, RDW Std Deviation 49.6 H, RDW Coeff of Porfirio 14.0, Plt Count 201, MPV 10.6, Immature Gran % (Auto) 1.500 H, Neut % (Auto) 67.6, Lymph % (Auto) 16.5 L, [place] % (Auto) 12.1 H, Eos % (Auto) 1.9, Baso % (Auto) 0.4, Absolute Neuts (auto) 6.0, Absolute Lymphs (auto) 1.47, Nucleated RBC % 0, Sodium 138, Potassium 3.8, Chloride 107, Carbon Dioxide 19.7 L, Anion Gap 11, BUN 23 H, Creatinine 0.93, Estim Creat Clear Calc 154.88, Est GFR (MDRD) Non-Af 76, BUN/Creatinine Ratio 24.4 H, Glucose 90, Calcium 8.5 Micro: Microbiology 06/08/25 11:05 Urine, Catheterized Urine Culture - Final Granulicatella adiacens 06/08/25 10:32 Blood Culture (Wb) - Right Hand Blood Culture - Preliminary No growth in 48 hours. Physical Exam Narrative Seen and examined. No acute issues. Infection was ruled out. Antibiotic was discontinued yesterday. Patient is morbidly obese and requires many people for assistance. Admitted after a fall and twisted her good leg, right leg. Recent left TKR. She denies any prosthesis besides left TKR including pacemaker or artificial valve. No fever or acute URI or LUTS. No rash. Physical exam General: Alert, Oriented x3, Cooperative. Morbid obesity BMI 63.2 kg/m? HEENT: Atraumatic, PERRLA, EOMI, Normocephalic. Oral: No Gingival or Mucosal Lesions/ Ulcerations Neck: Supple, No JVD, Negative Carotid Bruits Chest wall/Lungs: Air entry diminished in bilateral lung bases. No crepitation/rhonchi Cardiovascular: Regular rate and rhythm, Normal S1,S2, No M/G/R Abdomen: Bowel Sounds Present, Soft, Non Tender, Non-Distended : No dysuria. No renal angle tenderness. No suprapubic tenderness. Extremities: No edema, Capillary Refill Less than 3 Seconds Skin: No rashes, No breakdown Musculoskeletal: ROM of right knee or hip not done because of pain. ROM severely limited with chronic deformity of right knee. Status post left TKR, autumn intact. Surgical incision dry and no erythema. Neurological: Cranial nerves II-XII grossly intact, DTR 2+/4. No acute focal neurological deficit. Psych/Mental Status: Flat affect. Assessment & Plan Assessment/Plan (1) MARIELLA (acute kidney injury): (2) Right knee pain: (3) Leukocytosis: PLAN: Plan 1. #MARIELLA 06/11: On admission BUN/creatinine was 32/1.19. It increased to 44/1.67. Patient was seen by pump service supervisor CPK normal. Renal ultrasound no acute abnormality. Patient had low blood pressure and CHF medication on hold. Lactate was elevated therefore ID consult was obtained. No acute focus of infection on detailed history. No fever or dysuria or LUTS. Urine culture shows 25,000?50,000 G adiacnes. Blood culture does not show growth in 48 hours. As per ID, mild strep and urine. UA was growing alphahemolytic organism. Currently on Zosyn narrowed down to IV ceftriaxone. 06/12: BUN/creatinine 23/0.93. MARIELLA resolved. Continue holding furosemide, spironolactone and Entresto. 2. # Leukocytosis 06/11: Leukocytosis improving may be related to trauma and fall. Pro-Dionicio only minimally elevated at 0.19. Lactate as mentioned above. Seems mainly inflammatory 06/12: Leukocytosis resolved. Infection ruled out. Patient was evaluated by ID and antibiotic was discontinued yesterday 3. # Right knee pain after fall - Right knee x-ray showed moderate to severe tricompartment osteoarthritis with joint space narrowing and marginal osteophytes, small visible joint effusion noted otherwise no fractures or dislocations - Given recent left knee replacement in addition to right knee pain patient had significant difficulty ambulating so was admitted for further management - Schedule Tylenol - Pain control/report of care - PT/OT - Plan is for placement in the [place] area where patient is from and where her orthopedic surgeon, orthopedic surgeon, Dr. Sha Barber, [facility]. Repeat x-rays of lower extremity did not show any acute process 06/11: Continue PT/OT, requires significant assistance for most tasks at this time, plan is for placement, awaiting acceptance Continue aspirin 81 mg twice daily 06/12: Pre-CERT arrived late. Patient is going to be discharged to his senior care near [place]. Discharge early tomorrow. 4. History of cardiomyopathy probably from chemotherapy of Hodgkin's lymphoma. Currently Hodgkin's lymphoma is in remission. Last chemotherapy was in 2020 -06/11: Because of low BP metoprolol was down titrated. Her other medications Entresto, furosemide, Jardiance and spironolactone were held because of MARIELLA. Urine output improving. Given urine output is improving and p.o. is improving with improving kidney function will try to hold fluids to avoid overload, echocardiogram as above 2D echo technically difficult study with suboptimal images. Borderline LV systolic function, estimated EF 45 to 50% at least stage I diastolic dysfunction. Trileaflet aortic valve rest valves not visualized. RV not visualized Interpretation Summary Technically difficult study with suboptimal images. Borderline LV systolic function. Estimated LVEF 45 to 50%. At least stage I diastolic dysfunction. #Depression/anxiety -Continue home medications #GERD -Continue PPI # History of fibromyalgia - Supportive care #Morbid obesity -BMI documented as 61 kg/m? at time of admission -Complicates treatment, prognosis, outcomes -Recommend weight loss and lifestyle changes #DVT ppx: Patient on aspirin 81 mg twice daily for DVT prophylaxis postoperatively, this has been continued Charges/Coding Visit Charges Inpatient E&M: 06308 Subs Hosp L2
--- NOTE | 2025-06-12 15:51 | CASEMGMT ---
Discharge Planning Physicians will transport pt by cot tomorrow at 10a. Per Physician, there will be no [id number] cost for pt. [facility] and that orders will be sent in the morning. NELY GUZMAN updated. Ngoc Ann DC Planning Asst.
--- NOTE | 2025-06-12 16:15 | CASEMGMT ---
Addendum entered by Navid Caraballo 06/12/25 17:02: Pt states she has notified her mom about discharge to SNF tomorrow. Original Note: NELY GUZMAN note: Dr Chaudhary made aware prior auth for SNF[facility] obtained. He states will discharge pt tomorrow morning. chacho Grossman assistant chief of police, made aware. Transport arranged for 10 AM tomorrow morning per Ngoc. Dr Chaudhary made aware. Pt made aware of all of the above & voices appreciation. Rachid BOSWELL CM
[2025-06-12 22:25] VITALS: BP 135/76; PULSE 106; RESP 18; TEMP 36.5; O2SAT 98
[2025-06-12] MEDS: 0.9% Saline Lock 10 ML Syringe IV (22:38)
[2025-06-13 04:25] VITALS: BMI 64.6
[2025-06-13 04:40] VITALS: BP 140/81; PULSE 102; RESP 16; TEMP 36.7; O2SAT 98
[2025-06-13 07:28] LABS: Hematocrit 35.1 % (37-47); Hemoglobin 11.3 g/dL (12.0-15.0); Immature Granulocytes Count 0.180 X10^3/uL (0.0-0.0); Mean Corp Hgb Conc 32.2 g/dL (32-36); Mean Corpuscular Volume 94.6 fL (81-99); Mean Platelet Vol. 10.5 fl (6.2-12.0); NRBC Flagged by Analyzer 0 % (0-5); Platelet Count 203 K/mm3 (150-450); RBC Distribution Width CV 13.8 % (11.6-14.6); RBC Distribution Width SD 48.3 fl (35.1-43.9); Red Blood Count 3.71 M/mm3 (4.2-5.4); White Blood Count 7.7 K/mm3 (4.4-11.0)
[2025-06-13 07:58] VITALS: O2SAT 96
[2025-06-13 08:00] LABS: Anion Gap 12 (5-15); BUN 18 mg/dL (4-19); BUN/Creat Ratio 21.5 RATIO (10-20); Calcium,Total 8.9 mg/dL (7.6-11.0); Carbon Dioxide 20.6 mmol/L (21.0-32.0); Chloride 105 mmol/L (98-108); Estimated Creatinine Clearance 171.07 ml/min (50-250); Glucose 107 mg/dL (70-99); Potassium 4.1 mmol/L (3.3-5.1)
[2025-06-13] MEDS: BREXPIPRAZOLE 3 MG PO (08:04)
[2025-06-13] MEDS: buPROPion (XL) 300 MG TABLET.XL PO (08:04)
--- NOTE | 2025-06-13 08:07 | TREXTCAR_ITS ---
Diet Diet Order/Speech Therapy: INPATIENT Hospital Diet / Speech Therapy Order(s) 06/06/25 18:17 Diet: Cardiac - Heart Healthy Food consistency:: Regular Liquid Consistency:: Regular/Thin Routine Orders/Code Status Suppository Type: Dulcolax 10mg Suppository Frequency: Daily PRN Routine Lab Work: BMP (BMP in 2 days) DC O2, CPAP, BIPAP needs Home O2 Discharge instructions: No Wound(s) Left Knee: Wound Type: Surgical Incision right abd fold: Wound Type: open to air Therapies Extremity Affected:: Bilateral Lower Physical Therapy: Eval and Treat Occupational Therapy: Eval and Treat Speech Therapy: Eval and Treat Problem/Diagnosis (1) MARIELLA (acute kidney injury): Status: Acute Code(s): N17.9 - Acute kidney failure, unspecified (2) Right knee pain: Status: Acute Code(s): M25.561 - Pain in right knee (3) Leukocytosis: Status: Acute Code(s): D72.829 - Elevated white blood cell count, unspecified Plan 1. #MARIELLA 06/11: On admission BUN/creatinine was 32/1.19. It increased to 44/1.67. Patient was seen by food preparation worker CPK normal. Renal ultrasound no acute abnormality. Patient had low blood pressure and CHF medication on hold. Lactate was elevated therefore ID consult was obtained. No acute focus of infection on detailed history. No fever or dysuria or LUTS. Urine culture shows 25,000?50,000 G adiacnes. Blood culture does not show growth in 48 hours. As per ID, mild strep and urine. UA was growing alphahemolytic organism. Currently on Zosyn narrowed down to IV ceftriaxone. 2. # Leukocytosis 06/11: Leukocytosis improving may be related to trauma and fall. Pro-Dionicio only minimally elevated at 0.19. Lactate as mentioned above. Seems mainly inflammatory 3. # Right knee pain after fall - Right knee x-ray showed moderate to severe tricompartment osteoarthritis with joint space narrowing and marginal osteophytes, small visible joint effusion noted otherwise no fractures or dislocations - Given recent left knee replacement in addition to right knee pain patient had significant difficulty ambulating so was admitted for further management - Schedule Tylenol - Pain control/report of care - PT/OT - Plan is for placement in the [facility] where patient is from and where her orthopedic surgeon, orthopedic surgeon, Dr. Sha Barber, [facility]. Repeat x-rays of lower extremity did not show any acute process 06/11: Continue PT/OT, requires significant assistance for most tasks at this time, plan is for placement, awaiting acceptance Continue aspirin 81 mg twice daily 4. History of cardiomyopathy probably from chemotherapy of Hodgkin's lymphoma. Currently Hodgkin's lymphoma is in remission. Last chemotherapy was in 2020 -06/11: Because of low BP metoprolol was down titrated. Her other medications Entresto, furosemide, Jardiance and spironolactone were held because of MARIELLA. Urine output improving. Given urine output is improving and p.o. is improving with improving kidney function will try to hold fluids to avoid overload, echocardiogram as above 2D echo technically difficult study with suboptimal images. Borderline LV systolic function, estimated EF 45 to 50% at least stage I diastolic dysfunction. Trileaflet aortic valve rest valves not visualized. RV not visualized Interpretation Summary Technically difficult study with suboptimal images. Borderline LV systolic function. Estimated LVEF 45 to 50%. At least stage I diastolic dysfunction. #Depression/anxiety -Continue home medications #GERD -Continue PPI # History of fibromyalgia - Supportive care #Morbid obesity -BMI documented as 61 kg/m? at time of admission -Complicates treatment, prognosis, outcomes -Recommend weight loss and lifestyle changes #DVT ppx: Patient on aspirin 81 mg twice daily for DVT prophylaxis postoperatively, this has been continued Allergies/Procedures Done in Hospital Allergies No Known Allergies Allergy (Verified 06/06/25 12:31) Type of Care/Length of Stay Estimated LOS: Convalescent Care Less Than 30 days Type of Care Needed: Skilled Rehab Potential: Good Prognosis: Good Additional Orders/Day of Discharge Day of Discharge: 06/13/25 Dietary and Speech Recommendations Dietitian Recommendations/Changes: Adjust to cardiac diet. Will monitor weight trends. Discharge Plan Admission Admit Date/Time: 06/08/25 13:12 Attending Provider: Ed Chaudhary Primary Care Provider: Sophia Noel Consulting Providers: Cuate Azevedo; Ronald Carpenter; Stella Don; Ludwig Ch Discharge Orders/Prescriptions Prescriptions: New acetaminophen 500 mg Tablet 1,000 mg PO Q8 Qty: 0 0RF Continued metoprolol succinate 50 mg tablet extended release 24 hr 50 mg PO QHS metoprolol succinate 100 mg tablet extended release 24 hr 100 mg PO DAILY aspirin 81 mg tablet,delayed release (DR/EC) 81 mg PO BID mgpkarlocs-lavefjfoeyoch-hllm 50-325-40 mg tablet 1 - 2 tab PO Q4H PRN PRN (Reason: headache) bupropion HCl 300 mg tablet extended release 24 hr 300 mg PO DAILY Jardiance 10 mg tablet 10 mg PO DAILY Rexulti 3 mg tablet 3 mg PO DAILY omeprazole 40 mg capsule,delayed release(DR/EC) 40 mg PO DAILY venlafaxine 75 mg capsule,extended release 24hr 75 mg PO DAILY sumatriptan succinate 100 mg tablet 100 mg PO DAILY PRN (Reason: migraine) venlafaxine 150 mg capsule,extended release 24hr 150 mg PO DAILY trazodone 150 mg tablet 150 mg PO QHS pregabalin 150 mg capsule 150 mg PO TID Zepbound 15 mg/0.5 mL pen injector 15 mg subcut QWEEK Changed oxycodone 5 mg tablet 2.5 mg PO Q4H PRN PRN (Reason: pain) 3 Days Qty: 7 0RF Held furosemide 40 mg tablet 40 mg PO DAILY Hold Instructions: Hold for 3 days. meloxicam 15 mg tablet 15 mg PO DAILY Hold Instructions: Hold for 5 days for kidney failure spironolactone 25 mg tablet 25 mg PO DAILY Hold Instructions: Hold for 2 days sacubitril-valsartan 97-103 mg tablet 1 tab PO BID Hold Instructions: Hold for 3 days and start lower dose, half tablet twice daily Discontinued acetaminophen 500 mg tablet 500 - 1,000 mg PO Q6H PRN PRN (Reason: pain) Referrals / Follow Up: Sophia Noel MD [Primary Care Provider, Internal Medicine]
[2025-06-13 08:56] VITALS: BP 122/78; PULSE 102; RESP 16; TEMP 36.3; O2SAT 98
--- NOTE | 2025-06-13 09:08 | DS.PCM_ITS ---
Providers Date of Admission: 06/08/25 Date of Discharge: 06/13/25 Primary Care Physician: Dr. Sophia Noel MD Consultations 06/08/25 16:07 Consult: Nephrology Routine Consulting Provider: Ronald Carpenter Reason for Consult: worsening renal function EMERGENT Consult: No Notified: Yes Date Notified: 06/08/25 Time Notified: 16:25 Method of Notification: Answering Service 06/10/25 12:33 Consult: Infectious Disease Routine Consulting Provider: Ludwig Ch Reason for Consult: persistent elevated WBC, ucx only 25-50k, unclear etiology EMERGENT Consult: No MD Notified: Yes Date Notified: 06/10/25 Time Notified: 12:33 Method of Notification: Text Reason For Visit: ACUTE ON CHRONIC KNEE PAINW/ INABILITY Diagnosis Discharge Diagnosis (1) MARIELLA (acute kidney injury): Status: Acute Code(s): N17.9 - Acute kidney failure, unspecified (2) Right knee pain: Status: Acute Code(s): M25.561 - Pain in right knee (3) Leukocytosis: Status: Acute Code(s): D72.829 - Elevated white blood cell count, unspecified Plan 49-year-old female was admitted with right knee pain after a fall. She was also for DKA. Please see H&P for detail. 1. #MARIELLA 06/11: On admission BUN/creatinine was 32/1.19. It increased to 44/1.67. Patient was seen by golf cart assembler CPK normal. Renal ultrasound no acute abnormality. Patient had low blood pressure and CHF medication on hold. Lactate was elevated therefore ID consult was obtained. No acute focus of infection on detailed history. No fever or dysuria or LUTS. Urine culture shows 25,000?50,000 G adiacnes. Blood culture does not show growth in 48 hours. As per ID, mild strep and urine. UA was growing alphahemolytic organism. Currently on Zosyn narrowed down to IV ceftriaxone. 06/13: MARIELLA resolved. Repeat BUN/creatinine 18/0.84. 2. # Leukocytosis most likely inflammatory. Infectious cause ruled out. 06/11: Leukocytosis improving may be related to trauma and fall. Pro-Dionicio only minimally elevated at 0.19. Lactate as mentioned above. Seems mainly inflammatory 06/13: Leukocytosis resolved. Patient was evaluated by ID. There was no cause for infection was found. Antibiotic was discontinued as mentioned below. WBC count 7.7 thousand. 3. # Right knee pain after fall - Right knee x-ray showed moderate to severe tricompartment osteoarthritis with joint space narrowing and marginal osteophytes, small visible joint effusion noted otherwise no fractures or dislocations - Given recent left knee replacement in addition to right knee pain patient had significant difficulty ambulating so was admitted for further management - Schedule Tylenol - Pain control/report of care - PT/OT - Plan is for placement in the [facility] where patient is from and where her orthopedic surgeon, orthopedic surgeon, Dr. Sha Barber, [facility]. Repeat x-rays of lower extremity did not show any acute process 06/11: Continue PT/OT, requires significant assistance for most tasks at this time, plan is for placement, awaiting acceptance Continue aspirin 81 mg twice daily 06/13: Patient was accepted by the skilled nursing and transferred to SNF. 4. History of cardiomyopathy probably from chemotherapy of Hodgkin's lymphoma. Currently Hodgkin's lymphoma is in remission. Last chemotherapy was in 2020 -06/11: Because of low BP metoprolol was down titrated. Her other medications Entresto, furosemide, Jardiance and spironolactone were held because of MARIELLA. Urine output improving. Given urine output is improving and p.o. is improving with improving kidney function will try to hold fluids to avoid overload, echocardiogram as mentioned below 2D echo technically difficult study with suboptimal images. Borderline LV systolic function, estimated EF 45 to 50% at least stage I diastolic dysfunction. Trileaflet aortic valve rest valves not visualized. RV not visualized #Depression/anxiety -Continue home medications #GERD -Continue PPI # History of fibromyalgia - Supportive care #Morbid obesity -BMI documented as 61 kg/m? at time of admission -Complicates treatment, prognosis, outcomes -Recommend weight loss and lifestyle changes #DVT ppx: Patient on aspirin 81 mg twice daily for DVT prophylaxis postoperatively, this has been continued Discharge medication reconciliation done. Discharge follow-up instructions completed. Discharge process discussed with the patient and all questions were answered to patient's satisfaction. Follow with PCP in 1 to 2 weeks Total time spent, exact 35 minutes on discharge meds reconciliation, examination, coordination of care with nurses and ancillary staff, review of imaging and blood test and discussion with the patient on follow-up instructions. Medications at Discharge Home Medications aspirin 81 mg tablet,delayed release 81 mg PO BID 06/06/25 brexpiprazole 3 mg tablet (Rexulti) 3 mg PO DAILY 06/06/25 bupropion HCl 300 mg 24 hr tablet, extended release 300 mg PO DAILY 06/06/25 zhvvaahinv-ivfotqpjfvdcf-qlvukyrv 50 mg-325 mg-40 mg tablet 1 - 2 tab PO Q4H PRN PRN headache 06/06/25 empagliflozin 10 mg tablet (Jardiance) 10 mg PO DAILY 06/06/25 furosemide 40 mg tablet 40 mg PO DAILY 06/06/25 Held on 06/12/25. Instructions: Hold for 3 days. meloxicam 15 mg tablet 15 mg PO DAILY 06/06/25 Held on 06/12/25. Instructions: Hold for 5 days for kidney failure metoprolol succinate 100 mg tablet,extended release 24 hr 100 mg PO DAILY 06/06/25 metoprolol succinate 50 mg tablet,extended release 24 hr 50 mg PO QHS 06/06/25 omeprazole 40 mg capsule,delayed release 40 mg PO DAILY 06/06/25 pregabalin 150 mg capsule 150 mg PO TID 06/06/25 sacubitril 97 mg-valsartan 103 mg tablet 1 tab PO BID 06/06/25 Held on 06/12/25. Instructions: Hold for 3 days and start lower dose, half tablet twice daily spironolactone 25 mg tablet 25 mg PO DAILY 06/06/25 Held on 06/12/25. Instructions: Hold for 2 days sumatriptan succinate 100 mg tablet 100 mg PO DAILY PRN migraine 06/06/25 tirzepatide (weight loss) 15 mg/0.5 mL subcutaneous pen injector (Zepbound) 15 mg subcut QWEEK 06/06/25 trazodone 150 mg tablet 150 mg PO QHS 06/06/25 venlafaxine 150 mg capsule,extended release 24 hr 150 mg PO DAILY 06/06/25 venlafaxine 75 mg capsule,extended release 24 hr 75 mg PO DAILY 06/06/25 acetaminophen 500 mg tablet 1,000 mg (2 x 500 mg) PO Q8 #0 tabs 06/12/25 oxycodone 5 mg tablet 2.5 mg (1/2 x 5 mg) PO Q4H PRN PRN pain 3 days #7 tabs 06/12/25 Physical Exam Narrative Seen and examined. No acute issues. Infection was ruled out. Antibiotic was discontinued on 06/11/2025 Pain is controlled Patient is morbidly obese and requires many people for assistance. Admitted after a fall and twisted her good leg, right leg. Recent left TKR. She denies any prosthesis besides left TKR including pacemaker or artificial valve. No fever or acute URI or LUTS. No rash. Physical exam General: Alert, Oriented x3, Cooperative. Morbid obesity BMI 63.2 kg/m? HEENT: Atraumatic, PERRLA, EOMI, Normocephalic. Oral: No Gingival or Mucosal Lesions/ Ulcerations Neck: Supple, No JVD, Negative Carotid Bruits Chest wall/Lungs: Air entry diminished in bilateral lung bases. No crepitation/rhonchi Cardiovascular: Regular rate and rhythm, Normal S1,S2, No M/G/R Abdomen: Bowel Sounds Present, Soft, Non Tender, Non-Distended : No dysuria. No renal angle tenderness. No suprapubic tenderness. Extremities: No edema, Capillary Refill Less than 3 Seconds Skin: No rashes, No breakdown Musculoskeletal: ROM of right knee or hip, is limited. Any movement aggravates the pain. ROM severely limited with chronic deformity of right knee. Status post left TKR, autumn intact. Surgical incision dry and no erythema. Neurological: Cranial nerves II-XII grossly intact, DTR 2+/4. No acute focal neurological deficit. Psych/Mental Status: Flat affect. Weight / BMI Weight Weight: 487 lb 14.127 oz Body Mass Index (BMI) 64.6 ABG / Lab / Microbiology Data 06/13/25 07:05 06/13/25 07:05 Laboratory: Laboratory Results - last 24 hr 06/13/25 07:05: WBC 7.7, RBC 3.71 L, Hgb 11.3 L, Hct 35.1 L, MCV 94.6, MCH 30.5, MCHC 32.2, RDW Std Deviation 48.3 H, RDW Coeff of Porfirio 13.8, Plt Count 203, MPV 10.5, Immature Gran % (Auto) 2.300 H, Neut % (Auto) 69.1, Lymph % (Auto) 16.3 L, [place] % (Auto) 10.0, Eos % (Auto) 2.0, Baso % (Auto) 0.3, Absolute Neuts (auto) 5.3, Absolute Lymphs (auto) 1.25, Nucleated RBC % 0, Sodium 138, Potassium 4.1, Chloride 105, Carbon Dioxide 20.6 L, Anion Gap 12, BUN 18, Creatinine 0.84, Estim Creat Clear Calc 171.07, Est GFR (MDRD) Non-Af 85, BUN/Creatinine Ratio 21.5 H, Glucose 107 H, Calcium 8.9 Microbiology: Microbiology 06/08/25 10:32 Blood Culture (Wb) - Right Hand Blood Culture - Final No growth in 5 days. 06/08/25 11:05 Urine, Catheterized Urine Culture - Final Granulicatella adiacens D/C Instructions DC O2, CPAP, BIPAP Needs Home O2 Discharge instructions: No Meaningful Use Info Meaningful Use Meaningful Use Diagnoses (Choose all that apply): None applicable Discharge Plan Admission Admit Date/Time: 06/08/25 13:12 Primary Reason for Your Visit: MARIELLA, fall Attending Provider: Ed Chaudhary Primary Care Provider: Sophia Noel Consulting Providers: Cuate Azevedo; Ronald Carpenter; Stella Don; Ludwig Ch Instructions Additional Instructions / Restrictions: Follow-up orthopedic surgeon who operated left knee in in [place] in 1 week:. Discharge Orders/Prescriptions Prescriptions: New acetaminophen 500 mg Tablet 1,000 mg PO Q8 Qty: 0 0RF Continued metoprolol succinate 50 mg tablet extended release 24 hr 50 mg PO QHS metoprolol succinate 100 mg tablet extended release 24 hr 100 mg PO DAILY aspirin 81 mg tablet,delayed release (DR/EC) 81 mg PO BID kymtoumklb-ryskwansdnbfb-swwo 50-325-40 mg tablet 1 - 2 tab PO Q4H PRN PRN (Reason: headache) bupropion HCl 300 mg tablet extended release 24 hr 300 mg PO DAILY Jardiance 10 mg tablet 10 mg PO DAILY Rexulti 3 mg tablet 3 mg PO DAILY omeprazole 40 mg capsule,delayed release(DR/EC) 40 mg PO DAILY venlafaxine 75 mg capsule,extended release 24hr 75 mg PO DAILY sumatriptan succinate 100 mg tablet 100 mg PO DAILY PRN (Reason: migraine) venlafaxine 150 mg capsule,extended release 24hr 150 mg PO DAILY trazodone 150 mg tablet 150 mg PO QHS pregabalin 150 mg capsule 150 mg PO TID Zepbound 15 mg/0.5 mL pen injector 15 mg subcut QWEEK Changed oxycodone 5 mg tablet 2.5 mg PO Q4H PRN PRN (Reason: pain) 3 Days Qty: 7 0RF Held furosemide 40 mg tablet 40 mg PO DAILY Hold Instructions: Hold for 3 days. meloxicam 15 mg tablet 15 mg PO DAILY Hold Instructions: Hold for 5 days for kidney failure spironolactone 25 mg tablet 25 mg PO DAILY Hold Instructions: Hold for 2 days sacubitril-valsartan 97-103 mg tablet 1 tab PO BID Hold Instructions: Hold for 3 days and start lower dose, half tablet twice daily Discontinued acetaminophen 500 mg tablet 500 - 1,000 mg PO Q6H PRN PRN (Reason: pain) Referrals / Follow Up: Sophia Noel MD [Primary Care Provider, Internal Medicine] Disposition Disposition (needs filled in before D/C Order can be placed): Jail Facility Charges/Coding Visit Charges Inpatient E&M: 50934 Disch Hosp >30min
--- NOTE | 2025-06-13 09:28 | CASEMGMT ---
PASSR finished, transport form completed and given to DC assistant finance director for final dc plans.
--- NOTE | 2025-06-13 09:37 | PHA.DC.MR.R ---
Pharmacy [place] Med Reconciliation Pharmacy Service has performed discharge medication reconciliation for this patient. The patient's discharge medication list was reviewed for discrepancies and discrepancies were resolved. Medications at Discharge Home Medications aspirin 81 mg tablet,delayed release 81 mg PO BID 06/06/25 brexpiprazole 3 mg tablet (Rexulti) 3 mg PO DAILY 06/06/25 bupropion HCl 300 mg 24 hr tablet, extended release 300 mg PO DAILY 06/06/25 xucvrqhtrn-yjmbgulwmjgef-ghtmmvsx 50 mg-325 mg-40 mg tablet 1 - 2 tab PO Q4H PRN PRN headache 06/06/25 empagliflozin 10 mg tablet (Jardiance) 10 mg PO DAILY 06/06/25 furosemide 40 mg tablet 40 mg PO DAILY 06/06/25 Held on 06/12/25. Instructions: Hold for 3 days. meloxicam 15 mg tablet 15 mg PO DAILY 06/06/25 Held on 06/12/25. Instructions: Hold for 5 days for kidney failure metoprolol succinate 100 mg tablet,extended release 24 hr 100 mg PO DAILY 06/06/25 metoprolol succinate 50 mg tablet,extended release 24 hr 50 mg PO QHS 06/06/25 omeprazole 40 mg capsule,delayed release 40 mg PO DAILY 06/06/25 pregabalin 150 mg capsule 150 mg PO TID 06/06/25 sacubitril 97 mg-valsartan 103 mg tablet 1 tab PO BID 06/06/25 Held on 06/12/25. Instructions: Hold for 3 days and start lower dose, half tablet twice daily spironolactone 25 mg tablet 25 mg PO DAILY 06/06/25 Held on 06/12/25. Instructions: Hold for 2 days sumatriptan succinate 100 mg tablet 100 mg PO DAILY PRN migraine 06/06/25 tirzepatide (weight loss) 15 mg/0.5 mL subcutaneous pen injector (Zepbound) 15 mg subcut QWEEK 06/06/25 trazodone 150 mg tablet 150 mg PO QHS 06/06/25 venlafaxine 150 mg capsule,extended release 24 hr 150 mg PO DAILY 06/06/25 venlafaxine 75 mg capsule,extended release 24 hr 75 mg PO DAILY 06/06/25 acetaminophen 500 mg tablet 1,000 mg (2 x 500 mg) PO Q8 #0 tabs 06/12/25 oxycodone 5 mg tablet 2.5 mg (1/2 x 5 mg) PO Q4H PRN PRN pain 3 days #7 tabs 06/12/25
--- NOTE | 2025-06-13 09:42 | CASEMGMT ---
Discharge Planning Discharge orders, signed med list/script, and updated transport time sent via [facility] to [facility]. Physicians will transport pt by cot at 11a. Nursing, RN CM, pt, and her mother updated. Ngoc Ann DC Planning Asst.
[2025-06-13 11:36] VITALS: BP 122/78; PULSE 102; RESP 18; TEMP 36.3; O2SAT 98
== END 2025-06-13 11:49 | disposition skilled nursing facility (03) | DRG 683 ==
LOC: ED 13:24 → MS3 16:37
PROVIDERS: Internal Medicine; Admitting Provider Hospitalist; Emergency Provider Surgery; PCP Internal Medicine; Visit Provider Internal Medicine
DX: N17.9 Acute kidney failure, unspecified (principal); I50.22 Chronic systolic (congestive) heart failure; Z68.43 Body mass index [BMI] 50.0-59.9, adult; C85.9A Non-Hodgkin lymphoma, unspecified, in remission; I42.9 Cardiomyopathy, unspecified; K21.9 Gastro-esophageal reflux disease without esophagitis; I11.0 Hypertensive heart disease with heart failure; F32.A Depression, unspecified; D72.829 Elevated white blood cell count, unspecified; R26.2 Difficulty in walking, not elsewhere classified; G47.33 Obstructive sleep apnea (adult) (pediatric); M79.7 Fibromyalgia; F41.9 Anxiety disorder, unspecified; I95.9 Hypotension, unspecified; M25.561 Pain in right knee; W19.XXXA Unspecified fall, initial encounter; Z79.82 Long term (current) use of aspirin; E66.813 Obesity, class 3; Z79.1 Long term (current) use of non-steroidal anti-inflammatories (NSAID); Z79.899 Other long term (current) drug therapy; Z96.652 Presence of left artificial knee joint; Z99.89 Dependence on other enabling machines and devices; Z92.21 Personal history of antineoplastic chemotherapy; Y93.89 Activity, other specified
CPT/HCPCS: 36415; 73552; 73564; 73590; 76770; 80048; 80053; 80076; 81001; 82436; 82550; 82570; 83605; 84133; 84145; 84300; 84540; 85025; 87040; 87077; 87086; 87088; 93306; 97110; 97163; 97166; 97167; 97530; 97535; 99285; Q9957; A4216; C8929; J0696